=== PATIENT | male | born 1980 ===

== ENCOUNTER 2017-04-05 12:39 | Inpatient (IN) ==
[2017-04-05] MEDS ORDERED: ONDANSETRON 4 MG/2 ML VIAL IV STA (13:06)
[2017-04-05] MEDS ORDERED: METOCLOPRAMIDE 10 MG/2 ML VIAL IV STA (13:07)
--- NOTE | 2017-04-05 13:09 | Emergency Department Note ---
Arrival - Arrival Chief Complaint: Abdominal / Flank Pain Stated Complaint: abdominal pain ED Nursing Triage Note: Transfer from [facility] ER for further evaluation of pancreatitis. +mid-abdominal pain onset last pm. +nausea/ vomiting. +chills. +subjective fever. Lipase 980, H & H 8.9/31. Mode of Arrival: Stretcher Limitations: No Limitations Source: Patient Time Seen by Provider: 04/05/17 13:04 - History of Present Illness HPI Narrative: This 36-year-old white male presents on transfer from [facility] for acute pancreatitis. The patient states he has had onset of midepigastric burning pain as a 48 hours ago accompanied by repetitive vomiting with low- grade nausea. The patient states he is a drinker with his last alcohol consumption at the time of onset of symptoms. He denies any prior history of pancreatitis nor of known alcoholic liver disease although he appears slightly jaundiced. Other than being uncomfortable he is in no acute distress at this moment. Onset (ago): hour(s) (Patient presents 48 hours post onset of symptom) Allergies/Adverse Reactions: Allergies Allergy/AdvReac Type Severity Reaction Status Date / Time Amoxicillin Allergy Unknown Unknown/Unable Verified 04/05/17 12:58 to obtain Home Medications: Home Medications Medication Instructions Recorded Confirmed Type Ferrous Sulfate [Ferrous Sulfate 325 mg PO DAILY 04/06/15 04/30/16 History Cap] Pantoprazole Tab [Protonix Tab] 40 mg PO DAILY 04/30/16 04/30/16 History Polyethylene Glycol Powder 17 gm PO DAILY 04/30/16 04/30/16 History [Miralax] Thiamine HCl 400 mg PO DAILY 04/30/16 04/30/16 History levETIRAcetam TAB [Keppra Tab] 2 tablet PO TID 04/30/16 04/30/16 History Review of System - Review of System 12 point system: reviewed and no additional remarkable complaints except as stated - Review of System Constitutional: Present: as per HPI Gastrointestinal: Present: as per HPI Medical,Surgical,& Family Hx - Medical History Cardio: History of: Hypertension Neurology: History of: Seizures Gastrointestinal: History of: GI Problems Musculoskeletal: History of: Back/Neck Problems (bulging disc) Hematology: History of: Anemia (iron def) No history of: Blood Transfusion Reaction Other: No history of: Anesthesia Reactions - Surgical History Thoracic Surgeries: Patient denies;: Organ Transplant, Lobectomy Neurologic Surgeries: Patient denies: Neurologic Surgery HEENT Surgeries: Patient denies: Tonsilectomy & Adenoidectomy Abdominal Surgeries: Surgical HX of: Abdominal Surgery (colostomy when he was a baby, closed back up), Appendectomy, Colonoscopy, EGD Orthopedic Surgeries: Surgical HX of;: Orthopedic Surgery (x 4 surg, torn ligament, removed cartliage) - Family History Family History: Reports;: Family Diabetes, Family Heart Disease, Family Hypertension - Social History Smoking Status: Never smoker Frequency of Alcohol Use: Frequently Type of Drug Use: None Exam Physical Examination: GENERAL: Well developed, well nourished [place] male in no acute distress. HEENT: Normocephalic. No trauma. Moist mucous membranes. EOMI. PERRLA. ENT NML NECK: Supple. No adenopathy. CARDIAC: Regular. No murmurs. Heart rate 80 CHEST: Clear to auscultation. No respiratory distress. O2 sat 99% ABDOMEN: Soft. Very tender mid epigastrium with hypoactive bowel sounds. EXTREMITIES: No trauma. Normal ROM. No pedal edema. SKIN: No diaphoresis. No rash. Slight jaundice NEURO: Alert. Neuro intact no focal deficits. Vital Signs: Vital Signs Temperature 100.7 F H 04/05/17 12:39 Pulse Rate 80 04/05/17 12:39 Respiratory Rate 20 04/05/17 12:39 Blood Pressure 137/95 04/05/17 12:39 O2 Sat by Pulse Oximetry 99 04/05/17 12:39 Course - Reevaluation(s) Reevaluation #1: Patient presents for admission for pancreatitis and possible pancreatic abscess - Consultations Consultation #1: Discussed with hospitalist service who will admit for further evaluation treatment. Results - Labs Labs: Labs per [place] white blood cell count 4300, hematocrit 31, glucose 91, BUN 6, creatinine 0.7, bilirubin 2.5, lipase 935, ammonia 36 - Diagnostic Findings Procedure: CT Abdomen and Pelvis: image reviewed by me, report reviewed by me ( Benjie Kulkarni reveals 4 x 2 cm early pseudocyst versus pancreatic abscess between the pancreatic head and second portion of duodenum and which appears to invade the wall of the duodenum) Disposition Clinical Impression: Pancreatitis, Pancreatic abscess, Alcohol habituation Case discussed with: patient, patient's family Disposition: Still a Patient Condition: Guarded Time of Disposition: 13:51
[2017-04-05] MEDS ORDERED: ONDANSETRON 4 MG/2 ML VIAL ONE (13:23)
[2017-04-05] MEDS ORDERED: METOCLOPRAMIDE 10 MG/2 ML VIAL ONE (13:23)
[2017-04-05 14:11] LABS: Basophils # 0.1 10*3/uL (0.0-0.2); Basophils % 2.4 % (0.0-0.8); Eosinophils % 0.2 % (0.00-10.9); Hematocrit 27.7 VOL% (42.0-52.0); Hemoglobin 8.4 GM/DL (14.0-18.0); Immature Granulocytes % 0.9 %; Immature Granulocytes Absolute 0.05 #; Lymphocytes # 0.9 10*3/uL (1.4-4.0); Lymphocytes % 15.3 % (21.2-54.2); Mean Corpuscular HGB Conc 30.3 GM/DL (32-36); Mean Corpuscular Hemoglobin 25 PG (27-34); Mean Corpuscular Volume 81.7 FL (87-102); Mean Platelet Volume 10.3 FL (9.6-12.0); Monocytes # 0.7 10*3/uL (0.11-0.8); NRBC # 0.08 10*3/uL; Neutrophils % 69.2 % (38.7-73.9); Red Blood Count 3.39 MC/CUMM (3.8-5.5); Red Cell Distribution Width 18.9 % (9.3-17.3); White Blood Count 5.8 T/CUMM (4-12)
[2017-04-05 14:15] LABS: Platelet Count 82 T/CUMM (130-400)
[2017-04-05 14:29] LABS: Calcium 7.9 MG/DL (8.5-10.1); Osmolality,Calculated 271.7 MOS/KG (273-304); Potassium 3.5 MMOL/L (3.5-5.1)
--- NOTE | 2017-04-05 15:41 | Hospitalist History & Physical ---
Assessment and Plan (1) Pancreatitis Status: Acute Assessment and plan: Admit as inpatient. Treat with IV fluids and IV pain meds prn. IV antibiotics. Consult GI. Current Visit: Yes (2) Anemia Status: Acute Assessment and plan: Pt's h&h 8.4/27.7. We will continue to monitor. Anemia possibly secondary to chronic alcohol use. Current Visit: No (3) Generalized seizure Status: Chronic Assessment and plan: History of seizures. Ativan prn for seizures. Seizure precautions. Current Visit: No (4) Alcohol abuse Status: Acute Assessment and plan: Place pt in unit for possible alcohol withdrawal. Prn ativan. Order thiamine and folate. Monitor patient. Neuro checks. Current Visit: Yes History of Present Illness Chief complaint: abdominal pain History of present illness: Mr. Lin is a 36 year old male with a history of hypertension, pancreatitis, and seizures that presents as a transfer from [facility] for acute pancreatitis. Patient states that the pain had an onset of 2 days ago. Pt. reports that the pain started in the midepigastric area as a burning pain. Pt. reports nausea, vomiting, and a subjective fever. Pt denies any chest pain, shortness of breath at this time. Pt. states that he drinks at least 3 beers a day but denies any hard liquor intake. Pt. states that he has not ever had pancreatitis before but his is present and states he has had it at least once. Labs at the outside facility revealed elevated lipase and pt was transported here for higher level of care. Labs from our ED show a lipase of 1144, h&h of 8.4/27.7, and plt count of 82. Pt's case has been discussed with Dr. Angelo and pt will be admitted to the hospitalist service for further evaluation and treatment. Due to the patient's alcohol use and jittery state on exam in ED room 12; pt. will be placed in the ICU for close monitoring. Home meds have been reviewed and reconciled. Home Medications Medication Instructions Recorded Confirmed Type levETIRAcetam TAB [Keppra Tab] 750 tablet PO BID 04/30/16 04/05/17 History Propylene Glycol/Peg 400 [Systane 1 drop BOTH EYES QID PRN 04/05/17 04/05/17 History Gel Drops] Topiramate 50 mg PO DAILY 04/05/17 04/05/17 History Allergies Allergy/AdvReac Type Severity Reaction Status Date / Time Amoxicillin Allergy Unknown Unknown/Unable Verified 04/05/17 12:58 to obtain Medical,Surgical,& Family Hx - Medical History Cardio: History of: Hypertension Neurology: History of: Seizures Gastrointestinal: History of: GI Problems Musculoskeletal: History of: Back/Neck Problems (bulging disc) Hematology: History of: Anemia (iron def) No history of: Blood Transfusion Reaction Other: No history of: Anesthesia Reactions - Surgical History Thoracic Surgeries: Patient denies;: Organ Transplant, Lobectomy Neurologic Surgeries: Patient denies: Neurologic Surgery HEENT Surgeries: Patient denies: Tonsilectomy & Adenoidectomy Abdominal Surgeries: Surgical HX of: Abdominal Surgery (colostomy when he was a baby, closed back up), Appendectomy, Colonoscopy, EGD Orthopedic Surgeries: Surgical HX of;: Orthopedic Surgery (x 4 surg, torn ligament, removed cartliage) - Family History Family History: Reports;: Family Diabetes, Family Heart Disease, Family Hypertension - Social History Smoking Status: Never smoker Frequency of Alcohol Use: Frequently Type of Drug Use: None Marital Status: Lives With:: Spouse Functional capacity: independent ambulation - Constitutional Constitutional: Present: chills, fever(s), weakness. Absent: night sweats - EENT Eyes: Present: requires corrective lense. Absent: blurry vision Ears: Absent: decreased hearing Nose, mouth and throat: Absent: headache(s) - Cardiovascular Cardiovascular: Absent: chest pain at rest, edema - Respiratory Respiratory: Absent: cough - Gastrointestinal Gastrointestinal: Present: abdominal pain, nausea, vomiting - Genitourinary Genitourinary: Absent: difficulty urinating - Musculoskeletal Musculoskeletal: Absent: back pain - Neurological Neurological: Absent: confusion - Psychiatric Psychiatric: Absent: anxiety - Endocrine Endocrine: Absent: fatigue - Hematologic/Lymphatic Hematologic/Lymphatic: Absent: easy bleeding Exam - Constitutional Vitals: Period Temp Pulse Resp BP Sys/Long Pulse Ox Last 24 Hr 100.7 F 80 20 137/95 99 General appearance: normal weight, no acute distress - Head Head exam: Present: normal inspection, normocephalic - Eye Eye exam: Present: EOMI. Absent: scleral icterus Pupils: Present: MACK. Absent: fixed - Neck Neck exam: Present: normal inspection - Respiratory Respiratory exam: Present: clear to auscultation bilaterally. Absent: wheezes - Cardiovascular Cardiovascular exam: Present: regular rate and rhythm - GI/Abdominal GI/Abdominal exam: Present: normal bowel sounds, tenderness, soft - Extremities Exam Extremities exam: Present: normal inspection, normal capillary refill, full ROM. Absent: edema - Neurological Exam Neurological exam: Present: alert, oriented X3 - Psychiatric Psychiatric exam: Present: normal affect, normal mood - Skin Skin exam: Present: normal color, warm, dry Results - Labs CBC & BMP: 04/05/17 13:59 04/05/17 13:59 Lab Results: I have reviewed the past 24 hour labs
[2017-04-05 15:42] LABS: Hypochromasia 1+; Platelet Estimate Decreased
[2017-04-05 15:43] LABS: Giant Platelets Few
[2017-04-05] MEDS ORDERED: ALBUTEROL 2.5 MG/3 ML NEB RESP TX PRN (16:16)
[2017-04-05] MEDS ORDERED: ONDANSETRON 4 MG/2 ML VIAL IV PRN (16:16)
[2017-04-05] MEDS ORDERED: ACETAMINOPHEN 325 MG TABLET PO PRN (16:16)
[2017-04-05] MEDS ORDERED: Propylene Glycol/Peg 400 [Systane Gel Drops] 1 DROP BOTH EYES PRN (16:16)
[2017-04-05 16:32] LABS: Magnesium 1.5 MG/DL (1.8-2.4)
[2017-04-05] MEDS: SODIUM CHLORIDE 0.9% 1,000 ML IV SCH (17:03)
[2017-04-05] MEDS: HYDROmorphone 2 MG/1 ML VIAL IV PRN ×2 (17:08→22:06)
[2017-04-05] MEDS: LEVOFLOXACIN INJ 500 MG in PREMIX 1 EACH IV SCH (17:08)
[2017-04-05] MEDS: ENOXAPARIN 40 MG/0.4 ML SYRINGE SUBCUT SCH (17:08)
[2017-04-05] MEDS: chlordiazePOXIDE 25 MG CAPSULE PO PRN (17:09)
[2017-04-05 17:10] LABS: Apearance,Urine CLEAR (Clear); Bilirubin,Urine Negative (Negative); Blood, Urine Negative (Negative); Glucose,Urine (UA) Negative (Negative); Ketones,Urine 20 mg/dL (Negative); Mucus,Urine Occasional /LPF (Occasional); Nitrite,Urine Negative (Negative); Protein,Urine >=500 MG/DL; RBC,Urine <1 /HPF (0-4); Urine Color Amber (Yellow); Urine Specific Gravity 1.038 (1.001-1.035); Urine Urobilinogen < 2.0 EU/DL (0.2-1.0); WBC,Urine 1 /HPF (0-6)
[2017-04-05] MEDS: levETIRAcetam 250 MG TABLET PO SCH (20:21)
[2017-04-05] MEDS: THIAMINE 100 MG TABLET PO SCH (20:21)
[2017-04-05] MEDS ORDERED: POTASSIUM CHLORIDE 20 MEQ TABLET PO ONE (22:07)
[2017-04-05] MEDS ORDERED: MAGNESIUM SULF RIDER 2 GM in PREMIX 1 EACH IV ONE (22:24)
--- NOTE | 2017-04-05 22:59 | Gastrointestinal Consult Note ---
Assessment and Plan - Time spent with patient Time spent with patient: Greater than 30 minutes (1) Anemia Status: Acute Current Visit: No (2) Pancreatitis Status: Acute Current Visit: Yes (3) Alcohol abuse Status: Acute Assessment and plan: PLEASE NOTE -- automatic citation of patient information is unavoidable in this electronic note. I have made a reasonable effort to review the information cited , but it is not a part of my evaluation, impression, or recommendation unless specifically discussed in the dictated text that follows. As well, voice recognition software was used in the creation of this clinical note. Reasonable effort was made to identify and correct gross errors. Despite proofreading, errors in childcare worker may be present, including nonsense verbiage at times. If you encounter such an error, please contact me at for discussion and correction. -- Dr. Doyle Chief complaint/Consult Question: Acute pancreatitis Consult requested by: Petey History of present illness: This is a new patient, a 36-year-old , with possible history of prior pancreatitis, regular beer drinking, presenting to outside hospital with acute pancreatitis. States that starting 3- 4 days ago was having decrease in appetite, vague discomfort in the midepigastrium, starting 2 days ago had severe midepigastric pain, sharp, associated with nonbloody nausea and vomiting, with extension to more diffuse abdominal pain today. Denies prior symptoms greater than a week ago of early satiety, weight loss, melena, hematochezia. Currently denying diarrhea, constipation, hematochezia, melena. States that food does actually sound good to him this evening. Outside records from [facility] reviewed, patient admitted initially with vomiting which subsided after 8 mg of Zofran IV Has history of prior seizure, reporting they do not know the cause. States he had not been drinking beer for 2 weeks prior to seizure onset. Normally drinking approximately 3 beers per day, but states weeks to months ago he was drinking closer to 6-12 beers at a time, and "sharing a case with my friends on a daily basis." States he was drinking more heavily for about a year or 2, and was not drinking heavily prior to that. No hard liquor. No tobacco. No postprandial pain leading up to symptoms a few days ago. No history of gallstones. Does not know of any family members who have had pancreatitis, but states that some of his family is spread across the country. GI review of systems included: heartburn, regurgitation, early satiety, dysphagia, odynophagia, abdominal pain, nausea, vomiting, hematemesis, weight loss, weight gain, fever, chills, fatigue, decreased appetite, diarrhea, constipation, hematochezia, melena, bloating, malodorous flatus, anal pain, or NSAID use, and was negative except as noted above. REVIEW OF SYSTEMS: Complete other review of systems negative except as noted in the HPI. Outpatient medications: Personally reviewed Keppra 750 mg twice daily Topiramate 50 mg daily Propylene glycol gel drops to both eyes 4 times daily Inpatient medications: Personally reviewed Keppra 750 mg p.o. twice daily Levofloxacin 500 mg every 24 Ativan as needed Zofran as needed Protonix 40 mg p.o. daily NS 125 mils per hour IV every 8 hours scheduled Thiamine 400 mg p.o. twice daily Topamax 50 mg daily Multivitamin with folic acid daily Folic acid 1 mg daily Lovenox 40 mg subcu every 24 Librium 50 mg p.o. every 4 hours as needed Albuterol as needed Tylenol as needed Past Medical History: Reviewed Social history: Negative tobacco. Beer drinking as noted above Family history: No known pancreatitis or pancreatic cancer PHYSICAL EXAMINATION: CONSTITUTIONAL: Vital signs reviewed as documented above. In no acute distress. Nontoxic-appearing. EYES: Anicteric conjunctiva. Extra-ocular movements are intact and symmetric. EARS: Able to hear speech at conversational volume level, no external trauma/ masses. MOUTH: No oral/mouth lesions or ulcers. NECK: No masses or crepitus. Thyroid is of normal size and symmetric. HEART: Regular rate, regular rhythm LUNGS: Clear to auscultation bilaterally. No increased work of breathing or accessory muscle use. GI/ABDOMEN: Nonobese abdomen, soft, diffusely tender to palpation, with worse pain in the midepigastrium, voluntary guarding, no rebound tenderness, nondistended, no rigidity. No palpable mass. No appreciable hepatosplenomegaly. SKIN: No rash on face, arms, or hands. No palpable lesions MUSCULOSKELETAL: Normal gait. Muscle tone appears normal without any abnormal movements. PSYCH: Unusual affect. Somewhat jittery, appears slightly anxious, history questions are easily influenced by my input,. Alert and oriented to person, place, and time. Laboratory: Personally reviewed WBC 5.8, hemoglobin 8.4, platelets 82 Chemistrysodium 138, potassium 3.5, chloride 104, bicarb 26, anion gap 11.5, creatinine 0.5, glucose 89, calcium 7.9, magnesium 1.5 Lipase 1144, amylase 127 Liver associated enzymesnone drawn Serum alcohol less than 15 UA negative urobilinogen, and otherwise within normal limits Outside labs from 04/05/2017 also reviewed. Creatinine 0.7, hemoglobin 8.2, platelets 80s Total bilirubin 2.5, AST 97, ALT 27, alk phos 161 Lipase 930 Ammonia 36 Urine with bilirubin 2+, ketones 2+, protein 3+, blood 1+, positive nitrates, negative leukoesterase, 3-5 RBCs U tox negative for amphetamines, barbiturates, benzodiazepines, cocaine, opioids , PCP, THC, methamphetamine Radiology: Personally reviewed reports from outside records: Outside hospital CT abdomen pelvis with IV contrast from 04/05/2017. Thickening of the wall of the second and third portions of the duodenum with adjacent inflammatory stranding and a 3.6 x 2 cm probable fluid collection (hypodense) between the pancreatic head and second duodenum which appears to invade the wall of the duodenum. Differential diagnosis includes duodenitis/peptic ulcer disease, less likely acute pancreatitis localized to the head. Also noted as possible abscess or developing pseudocyst. Fatty liver. Stable perirectal lipomatosis or lipoma. Assessments: #Acute pancreatitis: recurrent per report of patient via memory of his . She is not at bedside this evening, so timeframe cannot be established. Potential etiologies include alcohol, biliary disease with current mass present , versus recurrent from pseudocyst with possible duct obstruction. No lipid panel. No clear family history, although limited by patients [id number]. No current use of pancreatitis inducing medications identified. #3.6x2 cm hypodense mass with adjacent inflammatory stranding between the pancreatic head and second portion of the duodenum #Anemia: MCV 81, possible iron deficiency. No current report of blood loss per patients clinical review, limited by history. Did have significant RBCs on outside urinalysis, but not seen here. #Other specified counseling -- The patient was seen for greater than 30 minutes. The patient was counseled for greater than 50% of this time regarding differential diagnosis, likely diagnosis, diagnostic and therapeutic alternatives, risks/benefits/alternatives of medications and procedures, and plan of care generally. The patient expressed understanding and wishes to proceed. Recommendations: -increase fluids to 250cc/hour, goal urine output 200-300 cc per hour -Replace potassium, magnesium, possible calcium pending albumin correction -Order CMP now for liver assessment -Lipid panel with triglyceride assessment -iron studies, celiac panel, b12, folate, retic count -MRCP pancreas and liver to better assess fluid collection noted on outside imaging, potential communication with pancreatic or biliary ducts, and source of lesion -recommend getting outside images for more direct review by our radiologists -alcohol withdrawal mgt per primary team, no current tachycardia Myesha Doyle MD, [facility] STAFF VOICE STUDIES DIRECTOR Current Visit: Yes History of Present Illness History of present illness: Mr. Lin is a 36 year old male Home Medications Medication Instructions Recorded Confirmed Type levETIRAcetam TAB [Keppra Tab] 750 tablet PO BID 04/30/16 04/05/17 History Propylene Glycol/Peg 400 [Systane 1 drop BOTH EYES QID PRN 04/05/17 04/05/17 History Gel Drops] Topiramate 50 mg PO DAILY 04/05/17 04/05/17 History Allergies Allergy/AdvReac Type Severity Reaction Status Date / Time Amoxicillin Allergy Unknown Unknown/Unable Verified 04/05/17 12:58 to obtain Medical,Surgical,& Family Hx - Medical History Cardio: History of: Hypertension Neurology: History of: Seizures Gastrointestinal: History of: GI Problems Musculoskeletal: History of: Back/Neck Problems (bulging disc) Hematology: History of: Anemia (iron def) No history of: Blood Transfusion Reaction Other: No history of: Anesthesia Reactions - Surgical History Thoracic Surgeries: Patient denies;: Organ Transplant, Lobectomy Neurologic Surgeries: Patient denies: Neurologic Surgery HEENT Surgeries: Patient denies: Tonsilectomy & Adenoidectomy Abdominal Surgeries: Surgical HX of: Abdominal Surgery (colostomy when he was a baby, closed back up), Appendectomy, Colonoscopy, EGD Orthopedic Surgeries: Surgical HX of;: Orthopedic Surgery (x 4 surg, torn ligament, removed cartliage) - Family History Family History: Reports;: Family Diabetes, Family Heart Disease, Family Hypertension - Social History Smoking Status: Never smoker Frequency of Alcohol Use: Frequently Type of Drug Use: None Exam - Constitutional Vitals: Period Temp Pulse Resp BP Sys/Long Pulse Ox Last 24 Hr 97.9 F-100.7 F 68-83 13-21 117-142/76-100 97-100 Results - Labs CBC & BMP: 04/05/17 13:59 04/05/17 13:59
[2017-04-05 23:47] LABS: Albumin 2.4 G/DL (3.4-5.0); Bilirubin,Total 2.1 MG/DL (0.2-1.0); Osmolality,Calculated 264.2 MOS/KG (273-304); Potassium 3.5 MMOL/L (3.5-5.1); Total Protein 7.7 G/DL (6.4-8.3)
[2017-04-06] MEDS: SODIUM CHLORIDE 0.9% 1,000 ML IV SCH ×6 (00:31→19:19)
[2017-04-06] MEDS ORDERED: MAGNESIUM SULF RIDER 2 GM in PREMIX 1 EACH IV ONE (01:02)
[2017-04-06] MEDS: LORazepam 2 MG/1 ML VIAL IV PRN ×4 (01:18→16:24)
[2017-04-06] MEDS: chlordiazePOXIDE 25 MG CAPSULE PO PRN ×3 (05:30→13:35)
[2017-04-06 05:36] LABS: Basophils # 0.2 10*3/uL (0.0-0.2); Basophils % 2.9 % (0.0-0.8); Eosinophils # 0.1 10*3/uL (0.0-0.87); Eosinophils % 2.1 % (0.00-10.9); Hematocrit 26.3 VOL% (42.0-52.0); Hemoglobin 7.8 GM/DL (14.0-18.0); Immature Granulocytes % 1.5 %; Immature Granulocytes Absolute 0.08 #; Lymphocytes # 0.9 10*3/uL (1.4-4.0); Lymphocytes % 17.4 % (21.2-54.2); Mean Corpuscular HGB Conc 29.7 GM/DL (32-36); Mean Corpuscular Hemoglobin 25 PG (27-34); Mean Corpuscular Volume 82.7 FL (87-102); Monocytes # 0.6 10*3/uL (0.11-0.8); Monocytes % 12.1 % (1.7-12.7); NRBC # 0.06 10*3/uL; Neutrophils # 3.3 10*3/uL (1.4-7.4); Platelet Count 87 T/CUMM (130-400); Red Blood Count 3.18 MC/CUMM (3.8-5.5); Red Cell Distribution Width 18.5 % (9.3-17.3); White Blood Count 5.2 T/CUMM (4-12)
[2017-04-06 06:09] LABS: Albumin 2.2 G/DL (3.4-5.0); Bilirubin,Direct 1.31 MG/DL (0.0-0.20); Bilirubin,Indirect 1.3 MG/DL (0.0-1.0); Bilirubin,Total 2.6 MG/DL (0.2-1.0); Magnesium 2.1 MG/DL (1.8-2.4)
[2017-04-06 06:10] LABS: Albumin 2.3 G/DL (3.4-5.0); Bilirubin,Total 2.6 MG/DL (0.2-1.0); Calcium 7.8 MG/DL (8.5-10.1); Osmolality,Calculated 262.4 MOS/KG (273-304); Potassium 3.5 MMOL/L (3.5-5.1); Total Protein 7.1 G/DL (6.4-8.3)
[2017-04-06 06:11] LABS: Risk Ratio 3.05; VLDL CHOLESTEROL 25.6 MG/DL
[2017-04-06 06:13] LABS: % Iron Saturation 9.2 % (18-50); Ferritin 24.9 ng/ml (26-388)
[2017-04-06 06:42] LABS: Folate 4.7 NG/ML (5.4-24.0)
[2017-04-06] MEDS ORDERED: MINERAL OIL/PETROLATUM OPH OINT 3.5 GM TUBE BOTH EYES PRN (07:00)
[2017-04-06 07:27] LABS: Band Neutrophils 1 % (0-10); Hypochromasia 2+; Lymphocytes 6 % (20-55); Nucleated Red Blood Cells 2 (0-5); Platelet Estimate Decreased; Polychromasia Slight; Segmented Neutrophils 83 % (50-85); Target Cells Slight; Total Cells Counted 100
[2017-04-06] MEDS: HYDROmorphone 2 MG/1 ML VIAL IV PRN ×2 (07:45→11:21)
[2017-04-06] MEDS ORDERED: MULTIVITAMIN (CENTRUM) TABLET PO SCH (09:00)
[2017-04-06] MEDS ORDERED: TOPIRAMATE 25 MG TABLET PO SCH (09:00)
[2017-04-06] MEDS ORDERED: FOLIC ACID 1 MG TABLET PO SCH (09:00)
[2017-04-06] MEDS ORDERED: THIAMINE 100 MG TABLET PO SCH (09:00)
[2017-04-06] MEDS ORDERED: PANTOPRAZOLE 40 MG TABLET PO SCH (09:00)
[2017-04-06] MEDS: levETIRAcetam 250 MG TABLET PO SCH (09:25)
[2017-04-06] MEDS: THIAMINE 100 MG TABLET PO SCH (09:26)
[2017-04-06] MEDS ORDERED: chlordiazePOXIDE 25 MG CAPSULE PO PRN (14:47)
--- NOTE | 2017-04-06 15:29 | CT Report ---
Exam: CT abdomen and pelvis with intravenous contrast Exam date: April 06, 2017 Clinical History: 36-year-old male with epigastric pain Technique: Axial computed tomography images of the abdomen and pelvis with intravenous contrast. All CT scans at this facility use one or more dose reduction techniques. Automated exposure control, MA/KV adjustment per patient size (including targeted exam Square dose is matched to indication) or iterative reconstruction technique Contrast: 100 mL of Omnipaque 350 administered intravenously Comparison: Previous day at 1900 hours Findings: Lower thorax: No acute pathologic findings at the lung bases Abdomen: Liver: Normal Gallbladder and bile ducts: Gallbladder is normal. No calcified stones. No ductal dilatation. Pancreas: There is an ill-defined heterogeneously hypoechoic enhancing mass involving the head and uncinate process of pancreas measuring up to 4.2 cm that extends into the medial wall of the second portion of the duodenum. Associated peripancreatic and periduodenal stranding within the adjacent mesentery. Spleen: Spleen is normal. Adrenals: No adrenal mass. Kidneys and ureters: Kidneys are normal in size, morphology and enhancement. No hydronephrosis. No ureteral calculus. Stomach and bowel: No evidence of acute gastritis, colitis or enteritis. No bowel obstruction. Appendix: Unremarkable. No primary or secondary signs to suggest appendicitis. Pelvis: Bladder: Unremarkable Reproductive: Unremarkable as visualized. Abdomen and pelvis: Intraperitoneal space: No pneumoperitoneum. No significant intraperitoneal fluid Bones/joints: No acute osseous abnormality Soft tissues: No mass Vasculature: No aortic aneurysm Lymph nodes: No adenopathy Impression: 1. Ill-defined heterogeneously hypoenhancing mass involving the pancreatic head and second portion of the duodenum. Differential considerations would include focal pancreatitis, pancreatic and/or ampullary mass, duodenitis versus contained perforated duodenal ulcer. ERCP is suggested. PROCEDURE INTERPRETED AT [facility] DEPARTMENT OF RADIOLOGY Final Report Signed by: Himanshu Simmons
[2017-04-06] MEDS ORDERED: POTASSIUM CHLORIDE 20 MEQ TABLET PO SCH (15:30)
--- NOTE | 2017-04-06 15:48 | Hospitalist Progress Note ---
Hospitalist: Subjective Interval history: 36-year-old [place] who was transferred from from an outside facility for evaluation of acute pancreatitis with possible pseudocyst. Patient is awake and alert and mildly jittery. Pt is getting regular Librium and Ativan Exam - Constitutional Vitals: Period Temp Pulse Resp BP Sys/Long Pulse Ox Last 24 Hr 97.9 F-100.0 F 64-93 13-21 107-142/74-100 95-100 Exam: General: No Acute Distress HEENT: Normocephalic, atraumatic, Extra ocular movements intact Neck: Supple, No JVD Chest: Clear to auscultation B/L CV: S1 + S2 audible without murmur, gallop or rub Abd: soft, mild epigastric tenderness, BS + Ext: No edema Skin: No purpura, bruising or rash Rheumatologic: No Joint deformities Neurologic: Awake and alert Results - Labs CBC & BMP: 04/06/17 05:06 04/06/17 05:06 - Impressions Assessment and Plan: Acute alcoholic pancreatitis Status: Acute Assessment and plan: Continue IV fluid and supportive treatment. Follow-up CT scan of the abdomen Current Visit: Yes Anemia of chronic disease Status: Acute Assessment and plan: Monitor hemoglobin and hematocrit Current Visit: No Chronic seizure disorder Status: Chronic Assessment and plan: Stable on Keppra continue Current Visit: No Alcohol abuse Status: Acute Assessment and plan: Remains at risk for DTs. He is on Librium and Ativan Current Visit: Yes DVT prophylaxis with Lovenox
[2017-04-06] MEDS: ENOXAPARIN 40 MG/0.4 ML SYRINGE SUBCUT SCH (16:23)
[2017-04-06] MEDS: LEVOFLOXACIN INJ 500 MG in PREMIX 1 EACH IV SCH (16:23)
--- NOTE | 2017-04-06 16:48 | Gastrointestinal Progress Note ---
Assessment and Plan (1) Anemia Status: Acute Current Visit: No (2) Pancreatitis Status: Acute Current Visit: Yes (3) Alcohol abuse Status: Acute Assessment and plan: PLEASE NOTE -- automatic citation of patient information is unavoidable in this electronic note. I have made a reasonable effort to review the information cited , but it is not a part of my evaluation, impression, or recommendation unless specifically discussed in the dictated text that follows. As well, voice recognition software was used in the creation of this clinical note. Reasonable effort was made to identify and correct gross errors. Despite proofreading, errors in well cleaner may be present, including nonsense verbiage at times. If you encounter such an error, please contact me at for discussion and correction. -- Vivek Chief complaint: Follow-up acute pancreatitis 24 hour events: No acute events overnight, patient unable to tolerate MRI machine this morning due to anxiety, CT pancreas done instead. Consult to Dr. De La Cruz this afternoon. Subjective: Mr. Mcfadden in [place] states that he is marginally better today, slightly improved abdominal pain, improved appetite. No new fevers or chills Medications: Reviewed with no gastrointestinal related changes noted REVIEW OF SYSTEMS: Complete other review of systems negative except as noted in the HPI PHYSICAL EXAMINATION: CONSTITUTIONAL: Vital signs reviewed as documented above. In no acute distress. Nontoxic-appearing. EYES: Anicteric conjunctiva. Extra-ocular movements are intact and symmetric. EARS: Able to hear speech at conversational volume level, no external trauma/ masses. No increased work of breathing or accessory muscle use. GI/ABDOMEN: Nonobese abdomen, soft, persistent tenderness in the midepigastrium to palpation, no rebound tenderness, nondistended, no rigidity. No palpable mass. No appreciable hepatosplenomegaly. SKIN: No rash on face, arms, or hands. No palpable lesions PSYCH: Normal affect. Alert and oriented to person, place, and time. Laboratory: Personally reviewed WBC still 5.2, hemoglobin 7.8, platelet count 87 Radiology: Personally reviewed reports and images with no pertinent changes unless noted here: CT pancreas of the abdomen, reviewed report by phone with radiologist, significant for approximately 3 cm heterogenous, fluid density mass abutting the pancreatic head and duodenal sweep. Unable to differentiate whether this is coming from the duodenum, such as duodenal diverticulum with phlegmon, contained perforation of ulcer, versus pancreatic head cancer, ampullary cancer , fluid related to severe pancreatitis Assessments: #Acute pancreatitisstable, currently responding well to current treatment #3 cm mass abutting the duodenum and pancreas. Differential diagnosis includes duodenal ulcer with contained perforation, duodenal diverticulum with phlegmon, pancreatic fluid collection related to severity of pancreatitis versus pancreatic head mass. Does not appear to be a pseudocyst or organized collection in the pancreas. No fevers or elevation in white blood cell count to suggest this is an abscess requiring drainage, or an open perforation. #Other specified counseling -- The patient was seen for greater than 30 minutes. The patient was counseled for greater than 50% of this time regarding differential diagnosis, likely diagnosis, diagnostic and therapeutic alternatives, risks/benefits/alternatives of medications and procedures, and plan of care generally. The patient expressed understanding and wishes to proceed. Recommendations: -Continue with current management of acute pancreatitis and monitor for clinical changes -I have consulted and spoken directly to Dr. Myrick regarding this case, in case surgical intervention is recommended or required, or to determine if sampling recommended or required -I am hesitant to perform an EGD at this time for assessment of the duodenum for possible ulceration, as this may be relatively contraindicated in a patient if this is a contained perforation. Patient with persistently worsening anemia , with iron deficiency, may be consistent with peptic ulcer disease but with overall improving clinical course will avoid EGD for now. If this is in fact a results of pancreatitis, may continue to organize for later drainage. Less likely possibility that this is the source of the patient's pancreatitis in this younger aged patient without prior tobacco use or known family history of pancreatic cancer. Currently not ordering a CA-19-9 as this can be falsely elevated in the setting of acute pancreatitis. This was discussed with Dr. Myrick who also did not see indication for acute change in management at this time. -still awaiting follow-up labs Myesha Doyle MD, MPH [employer] Current Visit: Yes Exam (Progress Note) - Constitutional Vitals: Period Temp Pulse Resp BP Sys/Long Pulse Ox Last 24 Hr 97.9 F-100.0 F 64-93 13-22 107-142/74-100 94-100 Results - Labs CBC & BMP: 04/06/17 05:06 04/06/17 05:06
[2017-04-06] MEDS ORDERED: LORazepam 2 MG/1 ML VIAL IV STA (17:53)
[2017-04-06] MEDS ORDERED: PHENobarbital 130 MG/1 ML VIAL IV ONE (17:55)
[2017-04-06] MEDS ORDERED: HALOPERIDOL 5 MG/ML AMP IV PRN (17:58)
[2017-04-06] MEDS ORDERED: SUCCINYLCHOLINE 200 MG/10 ML VIAL ONE ×2 (18:31→18:45)
[2017-04-06] MEDS ORDERED: ETOMIDATE 20 MG/10 ML VIAL IV ONE (18:31)
[2017-04-06] MEDS ORDERED: PROPOFOL 1,000 MG/100 ML BOTTLE IV ONE (18:31)
[2017-04-06] MEDS ORDERED: ESMOLOL 100 MG/10 ML VIAL IV ONE (18:45)
[2017-04-06] MEDS ORDERED: PROPOFOL 200 MG/20 ML VIAL IV ONE (18:45)
[2017-04-06] MEDS ORDERED: SUCCINYLCHOLINE 200 MG/10 ML VIAL IV ONE (18:56)
[2017-04-06] MEDS: PROPOFOL 1,000 MG/100 ML BOTTLE IV SCH ×3 (19:00→23:30)
--- NOTE | 2017-04-06 19:13 | Anesthesia Procedures ---
Anesthesia Procedures - Intubation Time out performed intubation: No (emergency) Sedative: other (propofol) Mg given sedative: 200 Paralytic: Succinylcholine Mg given paralytic: 120 Laryngoscope: Juwan (mac 4) ET Tube Size: 7.5 ET Tube Uncuffed: No (cuffed) Tube Secured Depth (cm): 22 Tube Secured Location: lips Tube Placement Confirmation: visualized tube passing through cords, equal breath sounds bilaterally, no breath sounds over epigastrium, confirmation detector color change Patient tolerated procedure intubation: well Intubation Complications: none (esmolol 100 mg given for HR of 176 prior to intubation, post intubation: bp 126/72, HR 108, 02 sat 100%, Dr. Bennett assisting)
[2017-04-06] MEDS: DIAZEPAM 10 MG/2 ML SYRINGE IV PRN (19:22)
--- NOTE | 2017-04-06 19:28 | XRay Report ---
Portable chest April 06, 2017 at 1857 hours Indication: ET tube placement Comparison: March 08, 2015 Findings: Cardiomediastinal contours are normal. Endotracheal tube in satisfactory position. Lungs are clear bilaterally. No acute osseous abnormalities. Visualized upper abdomen demonstrates no acute pathology. Impression: 1. Uncomplicated intubation 2. No acute cardiopulmonary findings PROCEDURE INTERPRETED AT [facility] Final Report Signed by: Himanshu Simmons
--- NOTE | 2017-04-06 19:37 | General Surgery Consult Note ---
Assessment and Plan (1) Pancreatitis Status: Acute Assessment and plan: Impression: Pancreatitis Plan: CT images and report reviewed. He is a complex cystic masses near the head of the pancreas. I suspect this is related to the pancreatitis and may be a pseudocyst or walling off of edema and peripancreatic fluid in the area. It is somewhat unusual in this location. I doubt malignancy. MRI was unable to be performed earlier because the patient could not stay still long enough to complete. He has gone into delirium tremens and is now intubated. Recommend continuing antibiotics and I will add Flagyl. I do not think this is a perforation of the duodenum. Generally has a significant amount of free air and free fluid. I recommend proceeding with MRI now that the patient is intubated when he is stable enough from his DTs to have that done. Current Visit: Yes History of Present Illness Chief complaint: Consult for loculated mass near the head of the pancreas History of present illness: Mr. Lin is a 36 year old male who was admitted with alcoholic pancreatitis. See his chart for details. He has been admitted to the ICU for monitoring his alcohol withdrawal. The patient is now gone into delirium tremens and was just intubated. Is a diagnosis of pancreatitis and a CT scan was performed showing a fluid collection near the head of the pancreas. Home Medications Medication Instructions Recorded Confirmed Type levETIRAcetam TAB [Keppra Tab] 750 tablet PO BID 04/30/16 04/05/17 History Propylene Glycol/Peg 400 [Systane 1 drop BOTH EYES QID PRN 04/05/17 04/05/17 History Gel Drops] Topiramate 50 mg PO DAILY 04/05/17 04/05/17 History Allergies Allergy/AdvReac Type Severity Reaction Status Date / Time Amoxicillin Allergy Unknown Unknown/Unable Verified 04/05/17 12:58 to obtain Medical,Surgical,& Family Hx - Medical History Cardio: History of: Hypertension Neurology: History of: Seizures Gastrointestinal: History of: GI Problems Musculoskeletal: History of: Back/Neck Problems (bulging disc) Hematology: History of: Anemia (iron def) No history of: Blood Transfusion Reaction Other: No history of: Anesthesia Reactions - Surgical History Thoracic Surgeries: Patient denies;: Organ Transplant, Lobectomy Neurologic Surgeries: Patient denies: Neurologic Surgery HEENT Surgeries: Patient denies: Tonsilectomy & Adenoidectomy Abdominal Surgeries: Surgical HX of: Abdominal Surgery (colostomy when he was a baby, closed back up), Appendectomy, Colonoscopy, EGD Orthopedic Surgeries: Surgical HX of;: Orthopedic Surgery (x 4 surg, torn ligament, removed cartliage) - Family History Family History: Reports;: Family Diabetes, Family Heart Disease, Family Hypertension - Social History Smoking Status: Never smoker Frequency of Alcohol Use: Frequently Type of Drug Use: None ROS unobtainable: due to endotracheal tube Exam - Constitutional Vitals: Period Temp Pulse Resp BP Sys/Long Pulse Ox Last 24 Hr 98.4 F-100.0 F 64-113 13-31 107-142/72-100 94-100 General appearance: no acute distress - Neck Neck exam: Present: normal inspection - Respiratory Respiratory exam: Present: clear to auscultation bilaterally (Intubated) - Cardiovascular Cardiovascular exam: Present: tachycardia (Sinus tach in the 110s) - GI/Abdominal GI/Abdominal exam: Present: soft (Nondistended, just intubated, exam limited) - Neurological Exam Neurological exam: Present: other (Reportedly he was agitated but was just intubated) Speech: Present: abnormal (None currently as he was just intubated) - Skin Skin exam: Present: normal color Results - Labs CBC & BMP: 04/06/17 05:06 04/06/17 05:06 Lab Results: I have reviewed the past 24 hour labs
[2017-04-06 19:52] LABS: ABG Base Excess -6.6 MMOL/L (-2.5-2.5); ABG HCO3 18.9 MMOL/L (20-26); ABG Oxygen Saturation 99.3 % (95-100); ABG PCO2 39.5 MM HG (35-48); ABG PH 7.297 (7.35-7.45); ABG TCO2 18.3 MMOL/L (23-27); Allen Test Positive; Pt O2 Delivery Device Ventilator
[2017-04-06] MEDS: metroNIDAZOLE INJ 500 MG in PREMIX 1 EACH IV SCH (19:53)
[2017-04-06 20:31] LABS: Barbiturates Screen,Urine Positive (Negative); Benzodiazepines Screen,Urine Positive (Negative); Cannabinoid Screen,Urine Negative (Negative); Opiate Screen,Urine Positive (Negative); Phencyclidine Screen,Urine Negative (Negative)
[2017-04-07] MEDS: SODIUM CHLORIDE 0.9% 1,000 ML IV SCH ×9 (00:45→22:46)
[2017-04-07] MEDS: metroNIDAZOLE INJ 500 MG in PREMIX 1 EACH IV SCH ×4 (01:12→21:51)
[2017-04-07] MEDS: LORazepam 2 MG/1 ML VIAL IV PRN ×2 (02:01→08:45)
[2017-04-07 03:13] LABS: ABG Base Excess -2.2 MMOL/L (-2.5-2.5); ABG HCO3 22.5 MMOL/L (20-26); ABG Oxygen Saturation 99.8 % (95-100); ABG PCO2 35.6 MM HG (35-48); ABG PH 7.401 (7.35-7.45); ABG TCO2 20.3 MMOL/L (23-27); Allen Test Positive; Pt O2 Delivery Device Ventilator
[2017-04-07] MEDS: PROPOFOL 1,000 MG/100 ML BOTTLE IV SCH ×6 (03:30→22:45)
[2017-04-07 06:04] LABS: Basophils # 0.1 10*3/uL (0.0-0.2); Basophils % 2.5 % (0.0-0.8); Eosinophils # 0.1 10*3/uL (0.0-0.87); Hematocrit 26.4 VOL% (42.0-52.0); Hemoglobin 7.7 GM/DL (14.0-18.0); Immature Granulocytes % 1.1 %; Immature Granulocytes Absolute 0.04 #; Lymphocytes # 0.6 10*3/uL (1.4-4.0); Mean Corpuscular HGB Conc 29.2 GM/DL (32-36); Mean Corpuscular Hemoglobin 25 PG (27-34); Mean Corpuscular Volume 84.6 FL (87-102); Mean Platelet Volume 10.2 FL (9.6-12.0); Monocytes # 0.5 10*3/uL (0.11-0.8); Monocytes % 13.8 % (1.7-12.7); Neutrophils # 2.3 10*3/uL (1.4-7.4); Neutrophils % 63.6 % (38.7-73.9); Platelet Count 89 T/CUMM (130-400); Red Blood Count 3.12 MC/CUMM (3.8-5.5); Red Cell Distribution Width 18.7 % (9.3-17.3); White Blood Count 3.6 T/CUMM (4-12)
[2017-04-07 06:37] LABS: Albumin 1.5 G/DL (3.4-5.0); Bilirubin,Total 1.5 MG/DL (0.2-1.0); Calcium 5.9 MG/DL (8.5-10.1); Osmolality,Calculated 277.1 MOS/KG (273-304); Potassium 3.1 MMOL/L (3.5-5.1)
[2017-04-07 06:43] LABS: Eosinophils 4 % (0-10); Hypochromasia 1+; Lymphocytes 14 % (20-55); Nucleated Red Blood Cells 1 (0-5); Segmented Neutrophils 75 % (50-85); Total Cells Counted 100
[2017-04-07 06:44] LABS: Microcytosis 1+; Polychromasia Slight
[2017-04-07 06:45] LABS: Anisocytosis 1+; Platelet Estimate Decreased
[2017-04-07] MEDS ORDERED: POTASSIUM CHLORIDE RIDER 20 MEQ in PREMIX 1 EACH IV PRN (08:34)
--- NOTE | 2017-04-07 08:48 | Pulmonology Consult Note ---
History of Present Illness Chief complaint: Ventilator. DT's. Pancreatitis. Alcoholic History of present illness: Mr. Lin is a 36 year old [place] male whom I been asked to see in pulmonary consultation. I been asked to treat his pulmonary problems and manage his mechanical ventilation. This patient was referred from [facility] with abdominal symptoms. He demonstrated evidence of delirium tremors. He did not be managed and required sedation intubation mechanical ventilation. The patient is an alcoholic. He has had a history of pancreatic problems. On x -rays he has a mass which is felt to be a pancreatic pseudocyst. The patient is sedated. He is unable to give me a review of systems. Presently his review of systems is therefore negative. Allergies. Amoxicillin Home medicines. Keppra. Topiramate. Systane gel drops. Past history. Seizures. High blood pressure. Pancreatitis. History of back and neck disc problems. Colostomy when he was a baby which was reanastomosed. Appendectomy. Social history. Reportedly never smoked. . Denies any drug use. Drinks of beer on a daily basis. Drug screen on arrival here. Serum alcohol less than 15. Positive for opiates , barbiturates and benzodiazepines. Note home medicines. Note patient was transferred from another institution so may have received some medicines along the way. Microbiology. No positive cultures. Lab. Creatinine is 3.1. Sodium 142. Total bilirubin was 2.6 at admission now 1.5. AST is elevated 94 ALT is normal at 24 alkaline Harley was initially 148 and is dropped to 101. Protein and albumin are low at 5.01.5 respectively. H& H is 7.7/26.4 with decreased indices and an elevated red blood cell distribution with. Platelets are 8 89,000 with a normal MPV white count is 3600 with 64 segs, 16 lymphs and 14 monocytes iron saturation is low at 9.2%. Total iron is low with a low normal total iron-binding capacity.Vitamin B12 level is normal. Folic acid level slightly low at 4.7. Amylase is dropped from 127-40 lipase is dropped from 1144 to 321. ABGs on mechanical ventilation FiO2 40% shows a pH of 7.40, PCO2 35.6, PO2 of 193 and a bicarb of 22.5. Chest x-ray. My interpretation. Heart size is normal. Pulmonary arteries are normal. No hilar adenopathy PD. Mediastinum is probably normal. Endotracheal tube is in good position. The left diaphragm is equal in height to the right which is a little unusual. There is scattered areas of increased markings which do not coalesce. I see no infiltrates or congestive heart, masses or pneumothorax Physical exam. Vital signs. Temp is presently 97.8 patient's had 3 temps in the 100 range. Neurological. Patient sedated. He has what looks like seizures and he appears to have asterixis. Face. Symmetrical. No edema of the lips or tongue Neck. Symmetrical. No masses. No meningismus. Lymphatics. No 7 mandibular cervical supraclavicular or epitrochlear adenopathy. Chest. Very mild loose large airway congestion. No wheezes no stridor. Cannot comment on chest wall tenderness since the patient is sedated Heart. Regular at 100 bpm I do not hear a murmur rub or gallop Abdomen. Slightly distended with scattered bowel sounds. and rectal deferred Extremities. No evidence of deep venous thrombophlebitis no clubbing. Musculoskeletal on a limited exam no gross abnormalities cervical thoracic and lumbar spine. The remainder the exam is negative. Impression. 1. Acute pancreatitis. 2. Possible pseudocyst of the pancreas 3. Alcoholism 4. Probable DTs 5. Intubation and mechanical ventilation in order to protect the patient's airways. 6. See past history 7. Hypokalemia 9. Iron deficiency anemia 8. Hypoproteinemia and hypoalbuminemia Plan. 1. Mechanical ventilation with weaning and physical therapy protocol 2. Ammonia level 3. Potassium replacement 4. See order Home Medications Medication Instructions Recorded Confirmed Type levETIRAcetam TAB [Keppra Tab] 750 tablet PO BID 04/30/16 04/05/17 History Propylene Glycol/Peg 400 [Systane 1 drop BOTH EYES QID PRN 04/05/17 04/05/17 History Gel Drops] Topiramate 50 mg PO DAILY 04/05/17 04/05/17 History Allergies Allergy/AdvReac Type Severity Reaction Status Date / Time Amoxicillin Allergy Unknown Unknown/Unable Verified 04/05/17 12:58 to obtain Exam (Pulmonay) H&P - Constitutional Vitals: Period Temp Pulse Resp BP Sys/Long Pulse Ox Last 24 Hr 97.6 F-99.1 F 59-115 12-31 89-142/47-98 94-100 Medical,Surgical,& Family Hx - Medical History Cardio: History of: Hypertension Neurology: History of: Seizures Gastrointestinal: History of: GI Problems Musculoskeletal: History of: Back/Neck Problems (bulging disc) Hematology: History of: Anemia (iron def) No history of: Blood Transfusion Reaction Other: No history of: Anesthesia Reactions - Surgical History Thoracic Surgeries: Patient denies;: Organ Transplant, Lobectomy Neurologic Surgeries: Patient denies: Neurologic Surgery HEENT Surgeries: Patient denies: Tonsilectomy & Adenoidectomy Abdominal Surgeries: Surgical HX of: Abdominal Surgery (colostomy when he was a baby, closed back up), Appendectomy, Colonoscopy, EGD Orthopedic Surgeries: Surgical HX of;: Orthopedic Surgery (x 4 surg, torn ligament, removed cartliage) - Family History Family History: Reports;: Family Diabetes, Family Heart Disease, Family Hypertension - Social History Smoking Status: Never smoker Frequency of Alcohol Use: Frequently Type of Drug Use: None Results - Labs CBC & BMP: 04/07/17 05:43 04/07/17 05:43
--- NOTE | 2017-04-07 08:58 | XRay Report ---
Portable chest April 07, 2017 at 0259 hours Indication: Respiratory failure Comparison images from previous day at 1857 hours Findings: Esophageal gastric tube has been placed in satisfactory position. Remaining tubes and lines are unchanged. Low lung volumes. No consolidative or congestive process. No acute osseous abnormalities. Impression: 1. Uncomplicated esophageal gastric tube placement. 2. Low lung volumes. No acute cardiopulmonary process PROCEDURE INTERPRETED AT [facility] [place] [facility]PARTMENT OF RADIOLOG[facility] Final Report Signed by: Himanshu Simmons
[2017-04-07] MEDS ORDERED: THIAMINE INJ 100 MG in SODIUM CHLORIDE 0.9% 100 ML IV SCH (09:00)
[2017-04-07] MEDS ORDERED: THIAMINE 200 MG/2 ML VIAL IV SCH (09:00)
[2017-04-07] MEDS ORDERED: FOLIC ACID 5 MG/1 ML VIAL IV SCH ×2 (09:00→10:00)
[2017-04-07] MEDS ORDERED: FOLIC ACID INJ 1 MG in SYRINGE 1 EACH IV ONE (09:30)
[2017-04-07] MEDS: DIAZEPAM 10 MG/2 ML SYRINGE IV PRN (09:35)
[2017-04-07] MEDS ORDERED: CALCIUM CHLORIDE 1,000 MG/10 ML SYRINGE IV ONE (09:37)
[2017-04-07] MEDS ORDERED: CALCIUM GLUCONATE 1,000 MG in SODIUM CHLORIDE 0.9% 100 ML IV ONE (10:00)
[2017-04-07] MEDS ORDERED: MIDAZOLAM 100 MG in SODIUM CHLORIDE 0.9% 80 ML IV SCH (10:00)
[2017-04-07] MEDS: PANTOPRAZOLE 40 MG VIAL IV SCH (10:24)
--- NOTE | 2017-04-07 10:30 | Gastrointestinal Progress Note ---
Assessment and Plan - Time spent with patient Time spent with patient: Greater than 30 minutes (1) Anemia Status: Acute Current Visit: No (2) Pancreatitis Status: Acute Current Visit: Yes (3) Alcohol abuse Status: Acute Assessment and plan: PLEASE NOTE -- automatic citation of patient information is unavoidable in this electronic note. I have made a reasonable effort to review the information cited , but it is not a part of my evaluation, impression, or recommendation unless specifically discussed in the dictated text that follows. As well, voice recognition software was used in the creation of this clinical note. Reasonable effort was made to identify and correct gross errors. Despite proofreading, errors in food service technician may be present, including nonsense verbiage at times. If you encounter such an error, please contact me at for discussion and correction. -- Vivek Chief complaint: Follow-up acute pancreatitis 24 hour events: No acute events overnight, patient unable to tolerate MRI machine this morning due to anxiety, CT pancreas done instead. Consult to Dr. De La Cruz this afternoon. Subjective: Mr. Mcfadden in [place] states that he is marginally better today, slightly improved abdominal pain, improved appetite. No new fevers or chills Medications: Reviewed with no gastrointestinal related changes noted REVIEW OF SYSTEMS: Complete other review of systems negative except as noted in the HPI PHYSICAL EXAMINATION: CONSTITUTIONAL: Vital signs reviewed as documented above. In no acute distress. Nontoxic-appearing. EYES: Anicteric conjunctiva. Extra-ocular movements are intact and symmetric. EARS: Able to hear speech at conversational volume level, no external trauma/ masses. No increased work of breathing or accessory muscle use. GI/ABDOMEN: Nonobese abdomen, soft, persistent tenderness in the midepigastrium to palpation, no rebound tenderness, nondistended, no rigidity. No palpable mass. No appreciable hepatosplenomegaly. SKIN: No rash on face, arms, or hands. No palpable lesions PSYCH: Normal affect. Alert and oriented to person, place, and time. Laboratory: Personally reviewed WBC still 5.2, hemoglobin 7.8, platelet count 87 Radiology: Personally reviewed reports and images with no pertinent changes unless noted here: CT pancreas of the abdomen, reviewed report by phone with radiologist, significant for approximately 3 cm heterogenous, fluid density mass abutting the pancreatic head and duodenal sweep. Unable to differentiate whether this is coming from the duodenum, such as duodenal diverticulum with phlegmon, contained perforation of ulcer, versus pancreatic head cancer, ampullary cancer , fluid related to severe pancreatitis Assessments: #Acute pancreatitisstable, currently responding well to current treatment #3 cm mass abutting the duodenum and pancreas. Differential diagnosis includes duodenal ulcer with contained perforation, duodenal diverticulum with phlegmon, pancreatic fluid collection related to severity of pancreatitis versus pancreatic head mass. Does not appear to be a pseudocyst or organized collection in the pancreas. No fevers or elevation in white blood cell count to suggest this is an abscess requiring drainage, or an open perforation. #Other specified counseling -- The patient was seen for greater than 30 minutes. The patient was counseled for greater than 50% of this time regarding differential diagnosis, likely diagnosis, diagnostic and therapeutic alternatives, risks/benefits/alternatives of medications and procedures, and plan of care generally. The patient expressed understanding and wishes to proceed. Recommendations: -Continue with current management of acute pancreatitis and monitor for clinical changes -I have consulted and spoken directly to Dr. Myrick regarding this case, in case surgical intervention is recommended or required, or to determine if sampling recommended or required -I am hesitant to perform an EGD at this time for assessment of the duodenum for possible ulceration, as this may be relatively contraindicated in a patient if this is a contained perforation. Patient with persistently worsening anemia , with iron deficiency, may be consistent with peptic ulcer disease but with overall improving clinical course will avoid EGD for now. If this is in fact a results of pancreatitis, may continue to organize for later drainage. Less likely possibility that this is the source of the patient's pancreatitis in this younger aged patient without prior tobacco use or known family history of pancreatic cancer. Currently not ordering a CA-19-9 as this can be falsely elevated in the setting of acute pancreatitis. This was discussed with Dr. Myrick who also did not see indication for acute change in management at this time. -still awaiting follow-up labs Myesha Doyle MD, MPH STAFF FOAM RUBBER FABRICATOR Current Visit: Yes (4) DTs (delirium tremens) Status: Acute Assessment and plan: PLEASE NOTE -- automatic citation of patient information is unavoidable in this electronic note. I have made a reasonable effort to review the information cited , but it is not a part of my evaluation, impression, or recommendation unless specifically discussed in the dictated text that follows. As well, voice recognition software was used in the creation of this clinical note. Reasonable effort was made to identify and correct gross errors. Despite proofreading, errors in food service technician may be present, including nonsense verbiage at times. If you encounter such an error, please contact me at for discussion and correction. -- Vivek Chief complaint: Pancreatitis and peripancreatic mass 24 hour events: Patient went into florid delirium tremens yesterday, is now intubated and sedated, seen by surgery Subjective: Jim Lin is sedated and intubated today. And unable to report subjective complaints. Medications: Personally reviewed Propofol drip Previously scheduled Librium, now replaced by as needed benzodiazepines REVIEW OF SYSTEMS: Unable to perform due to patient condition PHYSICAL EXAMINATION: CONSTITUTIONAL: Vital signs reviewed as documented above. Intubated, sedated, significant bilateral upper extremity muscle contractions and shakes. Heart rate maintained in the high 80s. EYES: Anicteric conjunctiva. Pupils are normal size unresponsive, without nystagmus. MOUTH: ET tube in place NECK: No masses or crepitus. Thyroid is of normal size and symmetric. HEART: Regular rate, regular rhythm, borderline tachycardia from high 80s to low 90s LUNGS: Clear to auscultation bilaterally. No increased work of breathing or accessory muscle use. GI/ABDOMEN: Nonobese abdomen, soft, compressible. Unable to assess pain today. SKIN: No rash on face, arms, or hands. No palpable lesions Neuro: Significant symmetric upper extremity increase in muscle tone, fisting of both hands, slight repetitive shaking movements. Does not respond to voice as is on propofol drip. Laboratory: Personally reviewed CBC with white blood cell count 3.6, hemoglobin 7.7, platelets 89 Chemistry with sodium 142, potassium 3.1, chloride 114, bicarb 20, BUN 4, creatinine 0.2, glucose 71, calcium 5.9 Liver associated enzymesAST increased slightly to 94, ALT 24 alk phos 101, total bilirubin decreased to 1.5, total protein 5, albumin 1.5 Lipase 321 Toxicology report since admission, now positive for medications we have been giving him including opiates, barbiturates, benzodiazepines. Please note that outside toxicology report was done at transferring hospital which was completely negative. Radiology: Personally reviewed images , no report available. I personally reviewed the chest x-ray, good position of ET tube, no acute abnormality. Assessments: #Acute pancreatitishad been improving, clinical assessment now limited by alcohol withdrawal delirium tremens requiring intubation and sedation. Although lipase is not used to assess clinical resolution, this is normalizing. Patient is also indicated the prior 2 days that his diet had returned. #Peripancreatic head masssee prior note for broad differential. Surgery has evaluated and believes this is more related to pancreatic etiology then duodenum. No evidence of biliary obstruction based on labs. Hemoglobin continued to down trend #Alcohol withdrawal. Severe. With delirium tremens. Prior seizure on Keppra, also very likely related to prior alcohol withdrawal based on limited history and current clinical picture. #Anemiawith evidence of iron deficiency. Hemoglobin continuing to down trend without evidence of overt bleeding. #Other specified counseling -- The patient was seen for greater than 30 minutes. The patient was counseled for greater than 50% of this time regarding differential diagnosis, likely diagnosis, diagnostic and therapeutic alternatives, risks/benefits/alternatives of medications and procedures, and plan of care generally. The patient expressed understanding and wishes to proceed. Recommendations: -Continue with high-volume fluids, defer antibiotic regimen to primary team and surgery consult -Recommend attempt repeat MRI with MRCP once patient tremulousness is under better control, while he is sedated. -Alcohol withdrawal management per primary team, recommend aggressive benzodiazepines, with propofol as sedation treatment only, continue Keppra -Recommend NG tube nutrition, starting with trickle feeds, to ensure patient tolerates. Dr. Angelo has consulted nutrition for this, which will additionally be helpful as the patient appears to be significantly nutritionally deficient. -Electrolyte replacement per primary team -Continue to monitor anemia, minimize blood draws, recommend pediatric tubes to minimize iatrogenic blood loss, EGD and colonoscopy as an inpatient or outpatient once stable for iron deficiency anemia -Transfuse for hemoglobin less than 7, consider IV iron infusion as well while patient is in the hospital Myesha Doyle MD, MPH STAFF [employer] RU[employer]ER FABRICATOR Current Visit: Yes Exam (Progress Note) - Constitutional Vitals: Period Temp Pulse Resp BP Sys/Long Pulse Ox Last 24 Hr 97.0 F-99.1 F 59-115 12-31 89-147/47-98 94-100 Results - Labs CBC & BMP: 04/07/17 05:43 04/07/17 05:43
--- NOTE | 2017-04-07 11:52 | General Surgery Progress Note ---
Assessment and Plan (1) Pancreatitis Status: Acute Assessment and plan: Impression: Pancreatitis Plan: Continue supportive care. Recommend MRCP when the patient is stable. Bilirubin is improved and his lipase is normal. Current Visit: Yes Subjective Narrative: Remains intubated and sedated. No events. Appears more stable. Family was present and confirmed that he drinks alcohol on a daily basis. Usually around a sixpack of beer and occasionally liquor as well. Exam - Constitutional Vitals: Period Temp Pulse Resp BP Sys/Long Pulse Ox Last 24 Hr 97.0 F-99.1 F 59-115 12-31 89-147/47-98 94-100 General appearance: no acute distress - Respiratory Respiratory exam: Present: clear to auscultation bilaterally - Cardiovascular Cardiovascular exam: Present: RRR - GI/Abdominal GI/Abdominal exam: Present: soft (Nondistended) Results - Labs CBC & BMP: 04/07/17 05:43 04/07/17 05:43 Lab Results: I have reviewed the past 24 hour labs
[2017-04-07] MEDS: HYDROmorphone 2 MG/1 ML VIAL IV PRN ×2 (11:59→16:12)
--- NOTE | 2017-04-07 12:00 | Hospitalist Progress Note ---
Assessment and Plan - Time spent with patient Time spent with patient: Less than 30 minutes (1) History of seizures Status: Acute Assessment and plan: 36-year-old male admitted by the hospitalist on 04/05/17 with acute alcoholic pancreatitis. He soon developed alcohol withdrawal with delirium tremens and he is now sedated on the ventilator. He is requiring multiple IV drips and as needed medications to stabilize. Pulmonary, GI, and surgery are all following the patient. Dr. Angelo will see and examined patient and further recommendations to follow. Alcohol withdrawal with DTs--we will increase patient's propofol drip, Versed infusion has been added. He is on Haldol, Ativan, Valium, and Dilaudid as needed. With patient having pancreatitis he very well could be in pain so we will increase his Dilaudid to every 2 hours to see if this helps with his stability. Will discuss with Dr. Angelo about restarting his Librium as well. Acute alcoholic pancreatitis--patient is receiving copious amounts of IV fluids. His total bilirubin is down and his lipase is normal this morning. Okay to start tube feeds. Continue Levaquin and Flagyl. Surgery is following. Chronic anemia--patient's H&H is stable at 7.7/26.4 which is only mildly decreased from admission. Can transfuse patient if hemoglobin drops below 7. Pancytopenia--this is new onset today most likely due to his current disease state of liver disease and pancreatitis. He has no signs of petechiae or active bleeding. We will continue to monitor. Current Visit: Yes (2) Anemia Status: Acute Current Visit: No (3) Hypertension Status: Acute Current Visit: No Qualifiers: Hypertension type: essential hypertension Qualified Code(s): I10 - Essential (primary) hypertension (4) Pancreatitis Status: Acute Current Visit: Yes (5) Alcohol abuse Status: Acute Current Visit: Yes (6) Alcohol withdrawal with delirium in inpatient treatment Status: Acute Current Visit: Yes (7) Pancytopenia associated with pancreatitis Status: Acute Current Visit: Yes Hospitalist: Subjective Interval history: Patient is sedated on the vent. Continues to have intermittent jitters. Patient is on propofol and Versed infusion, Haldol, Ativan, Valium, and Dilaudid as needed. Exam - Constitutional Vitals: Period Temp Pulse Resp BP Sys/Long Pulse Ox Last 24 Hr 97.0 F-99.1 F 59-115 12-31 89-147/47-98 94-100 Exam: 36-year-old male, sedated on the vent Chest clear CV regular rate and rhythm Abdomen soft with good bowel sounds Extremities no edema Results - Labs CBC & BMP: 04/07/17 05:43 04/07/17 05:43 Lab Results: I have reviewed the past 24 hour labs - Diagnostic Findings Procedure: Chest x-ray: report reviewed by me (NG tube in satisfactory placement. Low lung volumes.)
[2017-04-07] MEDS: POTASSIUM CHLORIDE RIDER 10 MEQ in PREMIX 1 EACH IV PRN ×3 (13:30→15:31)
[2017-04-07] MEDS ORDERED: DEXTROSE 50% 25 GM/50 ML SYRINGE IV PRN (13:43)
[2017-04-07] MEDS ORDERED: GLUCAGON 1 MG VIAL IM PRN (13:43)
[2017-04-07] MEDS ORDERED: PNEUMOCOCCAL VACCINE (13 VALENT) 0.5 ML SYRINGE IM ONE (16:42)
[2017-04-07] MEDS ORDERED: AMINO ACIDS/DEXT/LYTES 4.25-5% 2,000 ML IV SCH (17:00)
[2017-04-07] MEDS: LEVOFLOXACIN INJ 500 MG in PREMIX 1 EACH IV SCH (17:14)
[2017-04-07] MEDS: ENOXAPARIN 40 MG/0.4 ML SYRINGE SUBCUT SCH (17:14)
[2017-04-07] MEDS: INSULIN REGULAR 100 UNIT/ML SUBCUT SCH (18:42)
[2017-04-08] MEDS: PROPOFOL 1,000 MG/100 ML BOTTLE IV SCH ×3 (01:13→18:52)
[2017-04-08] MEDS: INSULIN REGULAR 100 UNIT/ML SUBCUT SCH ×3 (01:13→12:19)
[2017-04-08] MEDS: metroNIDAZOLE INJ 500 MG in PREMIX 1 EACH IV SCH ×4 (01:16→19:43)
[2017-04-08] MEDS: SODIUM CHLORIDE 0.9% 1,000 ML IV SCH ×5 (03:12→22:33)
[2017-04-08 03:56] LABS: ABG Base Excess -3.3 MMOL/L (-2.5-2.5); ABG HCO3 21.7 MMOL/L (20-26); ABG Oxygen Saturation 99.7 % (95-100); ABG PCO2 33.2 MM HG (35-48); ABG PH 7.406 (7.35-7.45); ABG TCO2 19.5 MMOL/L (23-27)
[2017-04-08] MEDS: HYDROmorphone 2 MG/1 ML VIAL IV PRN ×5 (04:13→22:19)
[2017-04-08 05:58] LABS: Basophils # 0.1 10*3/uL (0.0-0.2); Basophils % 1.5 % (0.0-0.8); Eosinophils # 0.2 10*3/uL (0.0-0.87); Eosinophils % 3.7 % (0.00-10.9); Hematocrit 25.5 VOL% (42.0-52.0); Hemoglobin 7.5 GM/DL (14.0-18.0); Immature Granulocytes % 0.7 %; Immature Granulocytes Absolute 0.03 #; Lymphocytes # 0.5 10*3/uL (1.4-4.0); Lymphocytes % 11.2 % (21.2-54.2); Mean Corpuscular HGB Conc 29.4 GM/DL (32-36); Mean Corpuscular Hemoglobin 25 PG (27-34); Mean Corpuscular Volume 83.9 FL (87-102); Monocytes # 0.7 10*3/uL (0.11-0.8); Monocytes % 16.9 % (1.7-12.7); Neutrophils # 2.7 10*3/uL (1.4-7.4); Platelet Count 97 T/CUMM (130-400); Red Blood Count 3.04 MC/CUMM (3.8-5.5); Red Cell Distribution Width 19.2 % (9.3-17.3)
[2017-04-08 06:34] LABS: Eosinophils 2 % (0-10); Lymphocytes 11 % (20-55); Segmented Neutrophils 71 % (50-85); Total Cells Counted 100
[2017-04-08 06:35] LABS: Hypochromasia 2+; Microcytosis 1+
[2017-04-08 06:36] LABS: Platelet Estimate Decreased; Target Cells Slight
[2017-04-08 06:45] LABS: Albumin 1.9 G/DL (3.4-5.0); Bilirubin,Total 2.8 MG/DL (0.2-1.0); Calcium 7.6 MG/DL (8.5-10.1); Osmolality,Calculated 270.7 MOS/KG (273-304); Potassium 3.1 MMOL/L (3.5-5.1); Total Protein 5.9 G/DL (6.4-8.3)
[2017-04-08 06:49] LABS: Phosphorous 2.9 MG/DL (2.5-4.9); Prealbumin 9.2 MG/DL (20-40)
[2017-04-08] MEDS: POTASSIUM CHLORIDE RIDER 10 MEQ in PREMIX 1 EACH IV PRN ×4 (07:37→12:50)
--- NOTE | 2017-04-08 07:56 | XRay Report ---
Portable chest April 08, 2017. 0353 hours Indication: Difficulty breathing, intubated Comparison images from previously measuring hours Findings: Low lung volumes. Cardiomediastinal contours are stable. Tubes and lines remain in satisfactory. No consolidative chest process. Visualized upper abdomen is unremarkable. No acute osseous abnormalities Impression: Stable chest. No acute cardiopulmonary findings PROCEDURE INTERPRETED AT [facility] DEPARTMENT OF RADIOLOGY Final Report Signed by: Himanshu Simmons
[2017-04-08] MEDS: DIAZEPAM 10 MG/2 ML SYRINGE IV PRN (08:45)
[2017-04-08] MEDS: PANTOPRAZOLE 40 MG VIAL IV SCH (09:50)
[2017-04-08] MEDS: FOLIC ACID IV SCH (09:50)
[2017-04-08] MEDS: SODIUM CHLORIDE 0.9% IV SCH (09:50)
[2017-04-08] MEDS: THIAMINE IV SCH (09:50)
--- NOTE | 2017-04-08 09:54 | Hospitalist Progress Note ---
Assessment and Plan (1) Alcohol withdrawal with delirium in inpatient treatment Status: Acute Assessment and plan: The patient will receive scheduled Valium and Haldol. We will hold the doses if he becomes oversedated. The patient can be reintubated if required. We will recheck electrolytes tomorrow and replete potassium overnight. Current Visit: Yes (2) DTs (delirium tremens) Status: Acute Current Visit: Yes Hospitalist: Subjective Interval history: Mr. Lin is admitted to the hospital and has developed delirium tremens. The patient was intubated overnight due to agitation. The patient extubated himself this morning and is now breathing comfortably. The patient remains delirious. I discussed and coordinate care with Dr. Palmer. I made changes to the patient's sedation schedule. He appears under sedated at the present time and I am going to change his medicines to schedule, hold if sedated. Exam - Constitutional Vitals: Period Temp Pulse Resp BP Sys/Long Pulse Ox Last 24 Hr 97.1 F-98.8 F 53-101 12-132 97-126/50-84 100-100 Exam: Constitutional System: Moderate distress. Moderate tremulousness. The patient is delirious Head: Normocephalic, atraumatic. Ears, Nose and Throat System: No evidence of Otitis or Mastoiditis. No epistaxis or discharge Eyes System: Pupils equal, round, and reactive. Extraocular muscles intact. Neck: Supple, without adenopathy, No jugular venous distention. No thyromegaly , neck mass, or prior surgery apparent. Respiratory System: Chest clear to auscultation. Cardiovascular System: Heart with regular rate and rhythm. No murmur. GI System: Abdomen soft, nontender. Normo active bowel sounds present. Musculoskeletal System: limbs with no pedal edema. Full distal pulses. Neurological System: No discernable sensory deficit. No aphasia Capillary Refill: less than 3 sec Results - Labs CBC & BMP: 04/08/17 05:08 04/08/17 05:08 Lab Results: I have reviewed the past 24 hour labs
[2017-04-08] MEDS: HALOPERIDOL 5 MG/ML AMP IV SCH ×4 (10:03→22:32)
[2017-04-08] MEDS: DIAZEPAM 10 MG/2 ML SYRINGE IV SCH ×14 (10:03→23:05)
--- NOTE | 2017-04-08 12:53 | General Surgery Progress Note ---
Assessment and Plan (1) Pancreatitis Status: Acute Assessment and plan: Impression: Pancreatitis Plan: For EGD today. No significant change in clinical condition. Appears stable. Current Visit: Yes Subjective Narrative: Events noted. Patient apparently had a smear of blood per rectum overnight. He is going for EGD today. Exam - Constitutional Vitals: Period Temp Pulse Resp BP Sys/Long Pulse Ox Last 24 Hr 97.1 F-99.4 F 53-101 11-132 97-121/50-86 100-100 General appearance: no acute distress - Respiratory Respiratory exam: Present: clear to auscultation bilaterally - Cardiovascular Cardiovascular exam: Present: RRR - GI/Abdominal GI/Abdominal exam: Present: soft - Skin Skin exam: Present: normal color Results - Labs CBC & BMP: 04/08/17 05:08 04/08/17 05:08 Lab Results: I have reviewed the past 24 hour labs
--- NOTE | 2017-04-08 12:54 | Gastrointestinal Progress Note ---
Assessment and Plan (1) Anemia Status: Acute Assessment and plan: 04/08-H&H noted at 7.5/25.5 without overt bleeding at this time. No transfusion at this time. EGD scheduled for today currently postponed to tomorrow due to self extubation and continued lethargy. Continue to monitor present time. Plan an addendum to followed by Dr. Gutierrez. Current Visit: No (2) Pancreatitis Status: Acute Assessment and plan: 04/08-lipase level normalized at present time. CT of abdomen (IV contrast) noted with ill-defined mass involving pancreatic head and second portion of duodenum. Vital signs are currently stable. Continue to monitor present time. Plan an addendum to followed by Dr. Gutierrez. Current Visit: Yes Gastroenterology - PN: Subj Interval history: CC: Pancreatitis, anemia Patient is seen, somnolent and somewhat lethargic. He was intubated however this morning he self extubated and appears to be breathing comfortably. He reportedly is having continued delirium as well as agitation and has had his sedation schedule reassess. He was scheduled for an EGD today but due to the events of this morning and his increase lethargy, we will hold off and continue to monitor present time and tentatively reschedule this for tomorrow. His H&H is holding at 7.5/25.5 and has not required blood transfusion thus far. Patient is also noted to be high hypokalemia at 3.1 with potassium riders going at this time. No overt bleeding noted at present time. Abdomen is soft, nontender. Last lipase level was down to 321. ROS: No acute distress at present time. Exam (Progress Note) - Constitutional Vitals: Period Temp Pulse Resp BP Sys/Long Pulse Ox Last 24 Hr 97.1 F-99.4 F 53-101 11-132 97-121/50-86 100-100 General appearance: normal weight, no acute distress - Head Head exam: Present: normal inspection, normocephalic - Eye Eye exam: Present: other (Lids and conjunctivae are unremarkable). Absent: scleral icterus - ENT ENT exam: Present: normal exam, normal oropharynx - Neck Neck exam: Present: normal inspection - Respiratory Respiratory exam: Present: clear to auscultation bilaterally. Absent: rales, rhonchi, wheezes - Cardiovascular Cardiovascular exam: Present: regular rate and rhythm. Absent: diastolic murmur , JVD, systolic murmur - GI/Abdominal GI/Abdominal exam: Present: normal bowel sounds, soft. Absent: ascites, distended, mass, organomegaly, tenderness - Extremities Exam Extremities exam: Present: normal inspection, full ROM - Back Exam Back exam: Present: normal inspection - Neurological Exam Neurological exam: Present: altered - Psychiatric Psychiatric exam: Present: other - Skin Skin exam: Present: normal color, warm, dry Results - Labs CBC & BMP: 04/08/17 05:08 04/08/17 05:08 Lab Results: I have reviewed the past 24 hour labs
--- NOTE | 2017-04-08 13:46 | Pulmonology Progress Note ---
Pulmonary - PN: Subj Interval history: This is a 36-year-old male. I saw him in pulmonary consultation on 04/07/2017. This patient had acute pancreatitis. He appeared to have delirium tremors. He required intubation mechanical ventilation. My impressions were 1. Acute pancreatitis. 2. Possible pseudocyst of the pancreas 3. Alcoholism 4. Probable DTs 5. Intubation and mechanical ventilation in order to protect the patient's airways. 6. See past history 7. Hypokalemia 9. Iron deficiency anemia 8. Hypoproteinemia and hypoalbuminemia 04/08/2017. This patient was seen earlier today and then again around 1 PM.His chest x-ray showed mild cardiomegaly. There were no infiltrates, no mass, no heart failure and no pneumothoraces. ABGs on FiO2 40% and mechanical ventilation showed a pH of 7.406, PCO2 33, PO2 of 150 and a bicarb of 21.7. Potassium was low at 3.1 sodium was normal. Creatinine was 0.5 BUN was 4. Total bilirubin was 2.8. Alkaline [place] was 138. AST was elevated at 119 and ALT was normal at 30. H&H was 7.5/25.5. White count was 4000 with 66 segs 17 lymphs and platelets were 97,000. Patient appeared to be stable. His weaning protocol was advanced. 1-2 hours later the patient extubated himself. On my exam he looks like he is moving air fine his O2 sats look good. His follow-up ABGs are pending and I suspect will be 5. Microbiology shows no growth. Have started the patient on nebulizers 4 times daily and as needed and will follow up with chest x-ray and ABGs tomorrow. Physical exam. Psychiatric. Think the patient is oriented 3. He still a little agitated but not like before Neurologic. Cranial nerves are intact. Long track motor functions intact Face. Symmetrical. No edema of the tongue or lips. Neck. Symmetrical. No meningismus Lymphatics. No submandibular cervical supraclavicular or epitrochlear adenopathy Chest. Mild coarse large airway congestion. No wheeze no stridor Heart. No gallop Abdomen nondistended. Rare bowel sounds Extremities. Nothing to suggest deep venous thrombophlebitis. The remainder the physical exam is negative Plan. 04/07/2017 1. Mechanical ventilation with weaning and physical therapy protocol 2. Ammonia level 3. Potassium replacement 4. See order 04/08/2017 1. Patient has self extubated himself. Discontinue weaning protocol 2. Follow-up chest x-ray ABGs 3. Inhalation therapy with DuoNeb's 4 times daily and as needed 4. Follow-up ABGs Exam (Progress Note) - Constitutional Vitals: Period Temp Pulse Resp BP Sys/Long Pulse Ox Last 24 Hr 97.1 F-99.4 F 53-101 11-132 97-121/50-86 100-100 Results - Labs CBC & BMP: 04/08/17 05:08 04/08/17 05:08
[2017-04-08] MEDS: LEVOFLOXACIN INJ 500 MG in PREMIX 1 EACH IV SCH (16:10)
[2017-04-09] MEDS: DIAZEPAM 10 MG/2 ML SYRINGE IV SCH ×17 (00:12→23:10)
[2017-04-09] MEDS: HYDROmorphone 2 MG/1 ML VIAL IV PRN ×3 (01:49→17:15)
[2017-04-09] MEDS: metroNIDAZOLE INJ 500 MG in PREMIX 1 EACH IV SCH ×4 (01:52→20:32)
[2017-04-09] MEDS: HALOPERIDOL 5 MG/ML AMP IV SCH ×5 (01:52→21:44)
[2017-04-09] MEDS: SODIUM CHLORIDE 0.9% 1,000 ML IV SCH ×5 (03:30→22:59)
[2017-04-09 08:03] LABS: Basophils # 0.1 10*3/uL (0.0-0.2); Basophils % 1.3 % (0.0-0.8); Eosinophils # 0.1 10*3/uL (0.0-0.87); Eosinophils % 1.3 % (0.00-10.9); Hemoglobin 7.1 GM/DL (14.0-18.0); Immature Granulocytes % 0.7 %; Immature Granulocytes Absolute 0.05 #; Lymphocytes # 0.8 10*3/uL (1.4-4.0); Lymphocytes % 11.4 % (21.2-54.2); Mean Corpuscular HGB Conc 29.6 GM/DL (32-36); Mean Corpuscular Hemoglobin 25 PG (27-34); Mean Corpuscular Volume 83.3 FL (87-102); Mean Platelet Volume 10.1 FL (9.6-12.0); Monocytes # 0.9 10*3/uL (0.11-0.8); Monocytes % 13.3 % (1.7-12.7); Platelet Count 107 T/CUMM (130-400); Red Blood Count 2.88 MC/CUMM (3.8-5.5); Red Cell Distribution Width 19.4 % (9.3-17.3); White Blood Count 6.9 T/CUMM (4-12)
[2017-04-09 08:23] LABS: Band Neutrophils 1 % (0-10); Eosinophils 3 % (0-10); Giant Platelets Few; Hypochromasia 1+; Lymphocytes 5 % (20-55); Platelet Estimate Decreased; Segmented Neutrophils 84 % (50-85); Total Cells Counted 100
[2017-04-09 08:24] LABS: Microcytosis Slight
[2017-04-09 08:40] LABS: Calcium 7.4 MG/DL (8.5-10.1); Magnesium 1.4 MG/DL (1.8-2.4); Osmolality,Calculated 270.7 MOS/KG (273-304); Potassium 2.9 MMOL/L (3.5-5.1)
[2017-04-09] MEDS ORDERED: MAGNESIUM SULF RIDER 4 GM in PREMIX 1 EACH IV ONE (08:56)
--- NOTE | 2017-04-09 09:01 | Hospitalist Progress Note ---
Assessment and Plan (1) Alcohol withdrawal with delirium in inpatient treatment Status: Acute Assessment and plan: The patient will receive scheduled Valium and Haldol. I am going to increase interval on Valium and Haldol today. We will hold the doses if he becomes oversedated. The patient can be reintubated if required. We will continue potassium repletion and we will replace magnesium. We will recheck electrolytes tomorrow. Current Visit: Yes (2) DTs (delirium tremens) Status: Acute Current Visit: Yes Hospitalist: Subjective Interval history: The patient is sedated but arousable. The patient has less agitation but still requires wrist restraints for safety of devices. The patient is receiving frequent sedation. The patient's breathing appears appropriate, and without distress Exam - Constitutional Vitals: Period Temp Pulse Resp BP Sys/Long Pulse Ox Last 24 Hr 99.1 F-100.6 F 83-136 4-24 83-141/64-94 97-100 Exam: Constitutional System: Minimal distress. No tremulousness. The patient is delirious. He is sleeping but arousable Head: Normocephalic, atraumatic. Ears, Nose and Throat System: No evidence of Otitis or Mastoiditis. No epistaxis or discharge Eyes System: Pupils equal, round, and reactive. Extraocular muscles intact. Neck: Supple, without adenopathy, No jugular venous distention. No thyromegaly , neck mass, or prior surgery apparent. Respiratory System: Chest clear to auscultation. Cardiovascular System: Heart with regular rate and rhythm. No murmur. GI System: Abdomen soft, nontender. Normo active bowel sounds present. Results - Labs CBC & BMP: 04/09/17 07:53 04/09/17 07:53 Lab Results: I have reviewed the past 24 hour labs
[2017-04-09] MEDS: PANTOPRAZOLE 40 MG VIAL IV SCH (09:19)
[2017-04-09] MEDS: THIAMINE IV SCH (09:36)
[2017-04-09] MEDS: FOLIC ACID IV SCH (09:36)
[2017-04-09] MEDS: SODIUM CHLORIDE 0.9% IV SCH (09:36)
[2017-04-09] MEDS: POTASSIUM CHLORIDE RIDER 10 MEQ in PREMIX 1 EACH IV PRN ×5 (09:50→15:47)
--- NOTE | 2017-04-09 11:11 | Pulmonology Progress Note ---
Pulmonary - PN: Subj Interval history: This is a 36-year-old male. I saw him in pulmonary consultation on 04/07/2017. This patient had acute pancreatitis. He appeared to have delirium tremors. He required intubation mechanical ventilation. My impressions were 1. Acute pancreatitis. 2. Possible pseudocyst of the pancreas 3. Alcoholism 4. Probable DTs 5. Intubation and mechanical ventilation in order to protect the patient's airways. 6. See past history 7. Hypokalemia 9. Iron deficiency anemia 8. Hypoproteinemia and hypoalbuminemia 04/08/2017. This patient was seen earlier today and then again around 1 PM.His chest x-ray showed mild cardiomegaly. There were no infiltrates, no mass, no heart failure and no pneumothoraces. ABGs on FiO2 40% and mechanical ventilation showed a pH of 7.406, PCO2 33, PO2 of 150 and a bicarb of 21.7. Potassium was low at 3.1 sodium was normal. Creatinine was 0.5 BUN was 4. Total bilirubin was 2.8. Alkaline Decker was 138. AST was elevated at 119 and ALT was normal at 30. H&H was 7.5/25.5. White count was 4000 with 66 segs 17 lymphs and platelets were 97,000. Patient appeared to be stable. His weaning protocol was advanced. 1-2 hours later the patient extubated himself. On my exam he looks like he is moving air fine his O2 sats look good. His follow-up ABGs are pending and I suspect will be 5. Microbiology shows no growth. Have started the patient on nebulizers 4 times daily and as needed and will follow up with chest x-ray and ABGs tomorrow. 04/09/2017. Patient is extubated he is doing well from a pulmonary standpoint. He did not have a chest x-ray and ABGs today. His potassium is low at 2.9. CBC is stable. Magnesium is low at 1.6. From a pulmonary standpoint he is doing well. I will sign off. His reconsult when needed. Physical exam. Psychiatric. Think the patient is oriented 3. He still a little agitated but not like before Neurologic. Cranial nerves are intact. Long track motor functions intact Face. Symmetrical. No edema of the tongue or lips. Neck. Symmetrical. No meningismus Lymphatics. No submandibular cervical supraclavicular or epitrochlear adenopathy Chest. Mild coarse large airway congestion. No wheeze no stridor Heart. No gallop Abdomen nondistended. Rare bowel sounds Extremities. Nothing to suggest deep venous thrombophlebitis. The remainder the physical exam is negative Plan. 04/07/2017 1. Mechanical ventilation with weaning and physical therapy protocol 2. Ammonia level 3. Potassium replacement 4. See order 04/08/2017 1. Patient has self extubated himself. Discontinue weaning protocol 2. Follow-up chest x-ray ABGs 3. Inhalation therapy with DuoNeb's 4 times daily and as needed 4. Follow-up ABGs 04/09/2017. 1. See today's note above. 2. We will sign off. Please reconsult when needed Exam (Progress Note) - Constitutional Vitals: Period Temp Pulse Resp BP Sys/Long Pulse Ox Last 24 Hr 99.1 F-100.6 F 83-136 4-18 83-141/53-94 97-100 Results - Labs CBC & BMP: 04/09/17 07:53 04/09/17 07:53
--- NOTE | 2017-04-09 12:06 | General Surgery Progress Note ---
Assessment and Plan (1) Pancreatitis Status: Acute Assessment and plan: Alcoholic pancreatitis with possible cyst. EGD is currently pending. Patient appears to be improving gradually. We will continue to follow along and make recommendations to proceed with MRCP as warranted. Current Visit: Yes Subjective Patient reports: Present: other (Patient remains sedated. He is stable. EGD was canceled yesterday and is pending for today.) Exam - Constitutional Vitals: Period Temp Pulse Resp BP Sys/Long Pulse Ox Last 24 Hr 99.1 F-100.6 F 83-136 4-18 83-141/53-94 97-100 General appearance: no acute distress, other (Sedated) - GI/Abdominal GI/Abdominal exam: Present: soft, other (Patient slightly winces with palpation of the upper abdomen). Absent: distended, firm Results - Labs CBC & BMP: 04/09/17 07:53 04/09/17 07:53 Lab Results: I have reviewed the past 24 hour labs
[2017-04-09] MEDS ORDERED: LIDOCAINE 1% 5 ML VIAL ONE (13:31)
[2017-04-09] MEDS ORDERED: PROPOFOL 200 MG/20 ML VIAL IV ONE (13:31)
--- NOTE | 2017-04-09 13:32 | History and Physical Update ---
History and Physical Update - History and Physical H&P was reviewed, the patient examined and there: are no changes in the patients condition since last H&P was completed. - Physical Exam Mental Status: other (Awake, lethargic) Heart: regular rate and rhythm Lung: clear to auscultation Abdomen: within normal limits Vitals: within normal limits
--- NOTE | 2017-04-09 13:51 | Anesthesia Post-Op ---
Anesthesia Post OP - Post Ansesthetic Evaluation Patient seen in post op: Yes Resp: within normal limits CV: within normal limits Mental: within normal limits Temp: within normal limits [id number]: within normal limits Nausea and Vomiting: within normal limits Pain: within normal limits
--- NOTE | 2017-04-09 13:51 | Operative Note ---
Date of procedure: 04/09/17 Pre-op diagnosis: Recent GI bleed with melena Procedure: Procedure: Esophagogastroduodenoscopy Brief clinical abstract: 36-year-old male with alcoholic liver disease is admitted with acute pancreatitis and delirium tremens. He had an episode of melena 3-4 days ago. Indication for procedure: GI bleed with melena Endoscopic findings:[After informed consent was obtained, the patient was placed in the left lateral decubitus position. The gastroscope was inserted in the upper esophagus under direct vision with no resistance encountered. Esophageal mucosa appeared normal with squamocolumnar junction sharply demarcated at the diaphragmatic indentation. The endoscope was advanced in the stomach which was carefully examined including retroflexed view of the cardia and fundus. No blood was noted in the stomach. 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 These areas were nonfriable and I elected not to coagulate these. No ulcer was seen. The pyloric channel, duodenal bulb, second and third portion of the duodenum were carefully examined with no abnormality seen. The endoscope was removed and patient appeared to tolerate the procedure well. Impression: Watermelon stomach/gastric antral vascular ectasia-with no stigmata of bleeding. Can be associated with portal hypertension. Recommendations: Follow clinically for now. Could consider argon coagulation of these areas later if evident bleeding. Consider colonoscopy later after recovered from present illness given iron deficiency. Anesthesia: MAC Surgeon / Physician: Jong Gutierrez Estimated blood loss: none Specimens: none sent Condition: stable Disposition: post procedure unit Results - Labs CBC & BMP: 04/09/17 07:53 04/09/17 12:09 Discharge Plan - Discharge Medications No Action levETIRAcetam TAB [Keppra Tab] 750 tablet PO BID Topiramate 50 mg PO DAILY Propylene Glycol/Peg 400 [Systane Gel Drops] 1 drop BOTH EYES QID PRN PRN Reason: Dry Eyes - Follow Up or Referral - Forms/Instructions
[2017-04-09] MEDS: LEVOFLOXACIN INJ 500 MG in PREMIX 1 EACH IV SCH (16:50)
[2017-04-09] MEDS: PROPOFOL 1,000 MG/100 ML BOTTLE IV SCH (17:59)
[2017-04-09 19:44] LABS: Potassium 3.7 MMOL/L (3.5-5.1)
[2017-04-09 23:16] LABS: IgA Serum (MAYO) 857 mg/dL (61 - 356)
[2017-04-10] MEDS: SODIUM CHLORIDE 0.9% 1,000 ML IV SCH ×6 (02:05→21:03)
[2017-04-10] MEDS: DIAZEPAM 10 MG/2 ML SYRINGE IV SCH ×12 (02:05→22:16)
[2017-04-10] MEDS: metroNIDAZOLE INJ 500 MG in PREMIX 1 EACH IV SCH ×4 (03:23→20:56)
[2017-04-10] MEDS: HALOPERIDOL 5 MG/ML AMP IV SCH ×4 (03:24→21:01)
[2017-04-10] MEDS: HYDROmorphone 2 MG/1 ML VIAL IV PRN ×4 (03:24→18:16)
[2017-04-10 05:18] LABS: Basophils # 0.1 10*3/uL (0.0-0.2); Basophils % 1.4 % (0.0-0.8); Eosinophils # 0.1 10*3/uL (0.0-0.87); Eosinophils % 1.6 % (0.00-10.9); Hematocrit 24.4 VOL% (42.0-52.0); Hemoglobin 7.3 GM/DL (14.0-18.0); Immature Granulocytes % 0.8 %; Immature Granulocytes Absolute 0.05 #; Lymphocytes # 0.4 10*3/uL (1.4-4.0); Lymphocytes % 6.6 % (21.2-54.2); Mean Corpuscular HGB Conc 29.9 GM/DL (32-36); Mean Corpuscular Hemoglobin 25 PG (27-34); Mean Corpuscular Volume 83.3 FL (87-102); Mean Platelet Volume 10.2 FL (9.6-12.0); Monocytes # 0.8 10*3/uL (0.11-0.8); Neutrophils # 4.8 10*3/uL (1.4-7.4); Neutrophils % 77.6 % (38.7-73.9); Platelet Count 118 T/CUMM (130-400); Red Blood Count 2.93 MC/CUMM (3.8-5.5); Red Cell Distribution Width 19.5 % (9.3-17.3); White Blood Count 6.2 T/CUMM (4-12)
[2017-04-10 05:50] LABS: Calcium 7.7 MG/DL (8.5-10.1); Magnesium 1.5 MG/DL (1.8-2.4); Osmolality,Calculated 272.5 MOS/KG (273-304); Potassium 3.2 MMOL/L (3.5-5.1)
[2017-04-10] MEDS: POTASSIUM CHLORIDE RIDER 10 MEQ in PREMIX 1 EACH IV PRN ×7 (06:08→15:43)
[2017-04-10] MEDS: PANTOPRAZOLE 40 MG VIAL IV SCH (08:41)
[2017-04-10] MEDS: SODIUM CHLORIDE 0.9% IV SCH (09:30)
[2017-04-10] MEDS: FOLIC ACID IV SCH (09:30)
[2017-04-10] MEDS: THIAMINE IV SCH (09:30)
--- NOTE | 2017-04-10 10:34 | General Surgery Progress Note ---
Assessment and Plan (1) Pancreatitis Status: Acute Assessment and plan: Alcoholic pancreatitis with possible cyst. EGD with no active bleeding. Patient appears to be improving gradually. We will continue to follow along and make recommendations to proceed with MRCP as warranted. Current Visit: Yes Subjective Patient reports: Present: other (T-max 100.5 overnight. Continues on Levaquin Flagyl. No leukocytosis. Patient is sedated.) Exam - Constitutional Vitals: Period Temp Pulse Resp BP Sys/Long Pulse Ox Last 24 Hr 98 F-100.5 F 66-112 10-20 106-135/55-89 93-100 General appearance: other (Sedated. ) - GI/Abdominal GI/Abdominal exam: Present: soft, other (hypoactive bowel sounds). Absent: tenderness (does not wince with palpation of abdomen today) Results - Labs CBC & BMP: 04/10/17 04:42 04/10/17 04:42 Lab Results: I have reviewed the past 24 hour labs
--- NOTE | 2017-04-10 11:29 | Gastrointestinal Progress Note ---
Assessment and Plan (1) Anemia Status: Acute Assessment and plan: 04/10-H&H remained stable at this time. No reports of overt bleeding. EGD findings noted as below. Continue to monitor present time. Plan an addendum follow Dr. Gutierrez. 04/08-H&H noted at 7.5/25.5 without overt bleeding at this time. No transfusion at this time. EGD scheduled for today currently postponed to tomorrow due to self extubation and continued lethargy. Continue to monitor present time. Plan an addendum to followed by Dr. Gutierrez. Current Visit: No (2) Pancreatitis Status: Acute Assessment and plan: 04/08-lipase level normalized at present time. CT of abdomen (IV contrast) noted with ill-defined mass involving pancreatic head and second portion of duodenum. Vital signs are currently stable. Continue to monitor present time. Plan an addendum to followed by Dr. Gutierrez. Current Visit: Yes Gastroenterology - PN: Subj Interval history: CC: GI bleed, melena Patient is seen, asleep in bed, however awakens minimally to verbal stimuli. He will respond to simple questions but falls back asleep. No further reports of overt bleeding. H&H is stable at 724. EGD on yesterday noted to show watermelon stomach/gastric antral vascular ectasia without stigmata of bleeding. His H&H has remained unchanged at this time. He has no complaints of pain during exam today. Abdomen is soft, nontender. ROS: No acute distress noted Exam (Progress Note) - Constitutional Vitals: Period Temp Pulse Resp BP Sys/Long Pulse Ox Last 24 Hr 98 F-100.5 F 66-112 10-20 106-135/59-89 93-100 - Other Additional findings: General appearance: normal weight, no acute distress - Head Head exam: Present: normal inspection, normocephalic - Eye Eye exam: Present: other (Lids and conjunctivae are unremarkable). Absent: scleral icterus - ENT ENT exam: Present: normal exam, normal oropharynx - Neck Neck exam: Present: normal inspection - Respiratory Respiratory exam: Present: clear to auscultation bilaterally. Absent: rales, rhonchi, wheezes - Cardiovascular Cardiovascular exam: Present: regular rate and rhythm. Absent: diastolic murmur , JVD, systolic murmur - GI/Abdominal GI/Abdominal exam: Present: normal bowel sounds, soft. Absent: ascites, distended, mass, organomegaly, tenderness - Extremities Exam Extremities exam: Present: normal inspection, full ROM - Back Exam Back exam: Present: normal inspection - Neurological Exam Neurological exam: Present: altered - Psychiatric Psychiatric exam: Present: other - Skin Skin exam: Present: normal color, warm, dry Results - Labs CBC & BMP: 04/10/17 04:42 04/10/17 04:42 Lab Results: I have reviewed the past 24 hour labs
--- NOTE | 2017-04-10 13:30 | Hospitalist Progress Note ---
Assessment and Plan (1) Alcohol withdrawal with delirium in inpatient treatment Status: Acute Assessment and plan: The patient will receive scheduled Valium and Haldol. I am going to increase interval on Valium and Haldol again today. We will hold the doses if he becomes oversedated. The patient's hemoglobin is stable and is not having further stigmata of bleeding. Current Visit: Yes (2) DTs (delirium tremens) Status: Acute Current Visit: Yes Hospitalist: Subjective Interval history: The patient is admitted to intensive care unit and has delirium tremens. The patient is improving. He is presently well sedated and not having agitation. The patient is reasonably cooperative. The patient appears to continue with some hallucinosis and misinterpretation of the environment. The patient had EGD yesterday and was found to have gastropathy. Exam - Constitutional Vitals: Period Temp Pulse Resp BP Sys/Long Pulse Ox Last 24 Hr 98.2 F-100.5 F 66-112 10-20 90-135/59-89 93-100 Exam: Constitutional System: Minimal distress. No tremulousness. The patient is delirious. He is sleeping but arousable Head: Normocephalic, atraumatic. Ears, Nose and Throat System: No evidence of Otitis or Mastoiditis. No epistaxis or discharge Eyes System: Pupils equal, round, and reactive. Extraocular muscles intact. Neck: Supple, without adenopathy, No jugular venous distention. No thyromegaly , neck mass, or prior surgery apparent. Respiratory System: Chest clear to auscultation. Cardiovascular System: Heart with regular rate and rhythm. No murmur. GI System: Abdomen soft, nontender. Normo active bowel sounds present. Results - Labs CBC & BMP: 04/10/17 04:42 04/10/17 12:17 Lab Results: I have reviewed the past 24 hour labs
[2017-04-10] MEDS: LEVOFLOXACIN INJ 500 MG in PREMIX 1 EACH IV SCH (17:23)
[2017-04-10] MEDS: PROPOFOL 1,000 MG/100 ML BOTTLE IV SCH (19:14)
[2017-04-11] MEDS: HYDROmorphone 2 MG/1 ML VIAL IV PRN ×3 (00:37→23:45)
[2017-04-11] MEDS: DIAZEPAM 10 MG/2 ML SYRINGE IV SCH ×5 (01:08→08:40)
[2017-04-11] MEDS: metroNIDAZOLE INJ 500 MG in PREMIX 1 EACH IV SCH ×4 (01:31→20:27)
[2017-04-11 03:23] LABS: Magnesium 1.5 MG/DL (1.8-2.4); Potassium 3.3 MMOL/L (3.5-5.1)
[2017-04-11] MEDS: HALOPERIDOL 5 MG/ML AMP IV SCH ×2 (03:45→08:39)
[2017-04-11] MEDS: POTASSIUM CHLORIDE RIDER 10 MEQ in PREMIX 1 EACH IV PRN ×4 (06:20→12:04)
[2017-04-11] MEDS ORDERED: MAGNESIUM SULF RIDER 4 GM in PREMIX 1 EACH IV ONE (08:36)
[2017-04-11] MEDS: POTASSIUM CHLORIDE 20 MEQ TABLET PO SCH ×3 (09:04→17:41)
[2017-04-11] MEDS: PANTOPRAZOLE 40 MG VIAL IV SCH (09:10)
[2017-04-11] MEDS: SODIUM CHLORIDE 0.9% 1,000 ML IV SCH ×2 (09:14→16:32)
--- NOTE | 2017-04-11 09:51 | Gastrointestinal Progress Note ---
Assessment and Plan (1) Anemia Status: Acute Assessment and plan: 04/11-awaiting repeat H&H results. No overt bleeding. Tolerating diet. Plan an addendum to followed by Dr. Gutierrez. 04/10-H&H remained stable at this time. No reports of overt bleeding. EGD findings noted as below. Continue to monitor present time. Plan an addendum follow Dr. Gutierrez. 04/08-H&H noted at 7.5/25.5 without overt bleeding at this time. No transfusion at this time. EGD scheduled for today currently postponed to tomorrow due to self extubation and continued lethargy. Continue to monitor present time. Plan an addendum to followed by Dr. Gutierrez. Current Visit: No (2) Pancreatitis Status: Acute Assessment and plan: 04/08-lipase level normalized at present time. CT of abdomen (IV contrast) noted with ill-defined mass involving pancreatic head and second portion of duodenum. Vital signs are currently stable. Continue to monitor present time. Plan an addendum to followed by Dr. Gutierrez. Current Visit: Yes Gastroenterology - PN: Subj Interval history: CC: Anemia Patient is seen awake and alert lying in bed. He does open his eyes and converse minimally today. He denies any abdominal pain, nausea vomiting. There is no report of overt bleeding as well. He is tolerating his diet at this time however does not wish to advance this any further. Abdomen is soft, nontender. No reports at this time agitation. No repeat H&H noted today therefore will order this this morning. ROS: Denies shortness breath or chest pain Exam (Progress Note) - Constitutional Vitals: Period Temp Pulse Resp BP Sys/Long Pulse Ox Last 24 Hr 98.4 F-99.4 F 63-93 10-20 99-140/55-97 92-100 - Other Additional findings: General appearance: normal weight, no acute distress - Head Head exam: Present: normal inspection, normocephalic - Eye Eye exam: Present: other (Lids and conjunctivae are unremarkable). Absent: scleral icterus - ENT ENT exam: Present: normal exam, normal oropharynx - Neck Neck exam: Present: normal inspection - Respiratory Respiratory exam: Present: clear to auscultation bilaterally. Absent: rales, rhonchi, wheezes - Cardiovascular Cardiovascular exam: Present: regular rate and rhythm. Absent: diastolic murmur , JVD, systolic murmur - GI/Abdominal GI/Abdominal exam: Present: normal bowel sounds, soft. Absent: ascites, distended, mass, organomegaly, tenderness - Extremities Exam Extremities exam: Present: normal inspection, full ROM - Back Exam Back exam: Present: normal inspection - Neurological Exam Neurological exam: Present: altered - Psychiatric Psychiatric exam: Present: other - Skin Skin exam: Present: normal color, warm, dry Results - Labs CBC & BMP: 04/10/17 04:42 04/11/17 02:27 Lab Results: I have reviewed the past 24 hour labs
[2017-04-11] MEDS: SODIUM CHLORIDE 0.9% IV SCH (10:18)
[2017-04-11] MEDS: FOLIC ACID IV SCH (10:18)
[2017-04-11] MEDS: THIAMINE IV SCH (10:18)
[2017-04-11 10:20] LABS: Hematocrit 25.9 VOL% (42.0-52.0); Hemoglobin 7.8 GM/DL (14.0-18.0)
[2017-04-11] MEDS ORDERED: HALOPERIDOL 5 MG/ML AMP IM PRN (10:56)
--- NOTE | 2017-04-11 10:59 | Hospitalist Progress Note ---
Assessment and Plan (1) Alcohol withdrawal with delirium in inpatient treatment Status: Acute Assessment and plan: The patient will transition to oral sedative. We will transition Her to oral route. The patient will be re-fed and is ready for transfer to monitored unit. Current Visit: Yes (2) DTs (delirium tremens) Status: Acute Current Visit: Yes Hospitalist: Subjective Interval history: The patient is awake and drowsy this morning as appropriate to his level of sedation. The patient is cooperative and does not require wrist restraints this morning. The patient has no stigmata of bleeding. Exam - Constitutional Vitals: Period Temp Pulse Resp BP Sys/Long Pulse Ox Last 24 Hr 98.4 F-99.4 F 63-93 10-20 99-140/55-97 92-100 Exam: Constitutional System: No distress. No tremulousness. The patient is cooperative and drowsy. Head: Normocephalic, atraumatic. Ears, Nose and Throat System: No evidence of Otitis or Mastoiditis. No epistaxis or discharge Eyes System: Pupils equal, round, and reactive. Extraocular muscles intact. Neck: Supple, without adenopathy, No jugular venous distention. No thyromegaly , neck mass, or prior surgery apparent. Respiratory System: Chest clear to auscultation. Cardiovascular System: Heart with regular rate and rhythm. No murmur. GI System: Abdomen soft, nontender. Normo active bowel sounds present. Results - Labs CBC & BMP: 04/11/17 10:02 04/11/17 02:27 Lab Results: I have reviewed the past 24 hour labs
[2017-04-11] MEDS: levETIRAcetam 500 MG TABLET PO SCH ×2 (11:58→20:25)
[2017-04-11] MEDS: DIAZEPAM 5 MG TABLET PO SCH ×3 (14:01→20:25)
[2017-04-11] MEDS: LOPERAMIDE 2 MG CAPSULE PO PRN ×2 (15:31→20:26)
[2017-04-11] MEDS ORDERED: PNEUMOCOCCAL VACCINE (13 VALENT) 0.5 ML SYRINGE IM ONE (16:42)
[2017-04-11] MEDS: LEVOFLOXACIN INJ 500 MG in PREMIX 1 EACH IV SCH (17:41)
[2017-04-12] MEDS: metroNIDAZOLE INJ 500 MG in PREMIX 1 EACH IV SCH ×4 (01:00→19:39)
[2017-04-12] MEDS: SODIUM CHLORIDE 0.9% 1,000 ML IV SCH (04:15)
[2017-04-12] MEDS: HYDROmorphone 2 MG/1 ML VIAL IV PRN ×3 (04:21→21:30)
[2017-04-12 06:37] LABS: Calcium 8.4 MG/DL (8.5-10.1); Osmolality,Calculated 271.7 MOS/KG (273-304); Potassium 3.4 MMOL/L (3.5-5.1)
[2017-04-12] MEDS: levETIRAcetam 500 MG TABLET PO SCH ×2 (08:03→21:26)
[2017-04-12] MEDS: PANTOPRAZOLE 40 MG TABLET PO SCH (08:03)
[2017-04-12] MEDS: DIAZEPAM 5 MG TABLET PO SCH ×4 (08:04→21:26)
[2017-04-12] MEDS: POTASSIUM CHLORIDE RIDER 10 MEQ in PREMIX 1 EACH IV PRN ×3 (09:36→14:09)
--- NOTE | 2017-04-12 09:46 | Hospitalist Progress Note ---
Assessment and Plan (1) Hypokalemia Status: Acute Assessment and plan: Potassium is 3.4 today. She will receive potassium chloride replacement as per protocol. Current Visit: Yes (2) Pancreatitis Status: Acute Assessment and plan: Her pancreatitis appears to be slowly resolving. She is only experiencing mild abdominal pain at the present time. She is no longer experiencing nausea or vomiting. Current Visit: Yes (3) Alcohol withdrawal with delirium in inpatient treatment Status: Acute Assessment and plan: Resolved. Current Visit: Yes Hospitalist: Subjective Interval history: Patient was transferred from the intensive care unit to the medical surgical unit yesterday. She had been hospitalized here with acute pancreatitis and alcohol withdrawal syndrome. She continues to experience mild abdominal pain. She is not experiencing nausea or vomiting. There is no evidence of delirium tremens at the present time. Exam - Constitutional Vitals: Period Temp Pulse Resp BP Sys/Long Pulse Ox Last 24 Hr 97.1 F-98.6 F 52-96 13-25 101-149/54-105 93-100 General appearance: no acute distress - Head Head exam: Present: normal inspection - Neck Neck exam: Present: normal inspection - Respiratory Respiratory exam: Present: clear to auscultation bilaterally - Cardiovascular Cardiovascular exam: Present: regular rate and rhythm - GI/Abdominal GI/Abdominal exam: Present: normal bowel sounds, soft, other (Nontender with no palpable masses or hepatosplenomegaly.) - Extremities Exam Extremities exam: Present: normal inspection - Neurological Exam Neurological exam: Present: alert, oriented X3 - Psychiatric Psychiatric exam: Present: normal affect - Skin Skin exam: Present: normal color, warm, intact Results - Labs CBC & BMP: 04/11/17 10:02 04/12/17 05:25
--- NOTE | 2017-04-12 14:51 | Gastrointestinal Progress Note ---
Assessment and Plan (1) DTs (delirium tremens) Status: Acute Assessment and plan: This is a patient of Dr. Gutierrez's who I am covering over the weekend while he is off call. The patient is taking Valium to control DTs, he does not appear to be shaking and is not complaining of any pain per se. He is remaining on clear liquids--and I think he would likely be safe to advance his diet to low- fat low-sodium diet how he does with this. He likely would benefit by increasing his calories at this point. I will recheck his lipase level in the morning time to make sure this is stable. Current Visit: Yes (2) Pancreatitis Status: Acute Current Visit: Yes (3) Alcohol abuse Status: Acute Assessment and plan: Likely the source the patient's pancreatitis and current complaints. We need to reemphasize abstinence to this patient in the future. Current Visit: Yes (4) Anemia Status: Acute Assessment and plan: We will recheck his CBC level tomorrow to see where he is at--currently his hematocrit is about 26%. This is up slightly from 2 days ago. Current Visit: No Gastroenterology - PN: Subj Interval history: The patient is minimally reactive/conversant. He is not complaining of any pain , he seems quite sedated on his large doses of Valium and Haldol. Exam (Progress Note) - Constitutional Vitals: Period Temp Pulse Resp BP Sys/Long Pulse Ox Last 24 Hr 97.1 F-99.0 F 52-96 14-20 101-149/54-105 93-98 General appearance: no acute distress - Head Head exam: Present: normocephalic, atraumatic - Eye Eye exam: Present: EOMI - Respiratory Respiratory exam: Present: clear to auscultation bilaterally - Cardiovascular Cardiovascular exam: Present: regular rate and rhythm - GI/Abdominal GI/Abdominal exam: Present: normal bowel sounds, tenderness (Mild right upper quadrant tenderness to deep palpation), soft. Absent: distended, guarding, rebound - Extremities Exam Extremities exam: Absent: edema - Neurological Exam Neurological exam: Present: altered (Somnolent) - Psychiatric Psychiatric exam: Present: flat affect - Skin Skin exam: Present: warm Results - Labs CBC & BMP: 04/11/17 10:02 04/12/17 05:25
[2017-04-12] MEDS: FOLIC ACID IV SCH (16:08)
[2017-04-12] MEDS: THIAMINE IV SCH (16:08)
[2017-04-12] MEDS: SODIUM CHLORIDE 0.9% IV SCH (16:08)
[2017-04-12] MEDS: LEVOFLOXACIN INJ 500 MG in PREMIX 1 EACH IV SCH (17:18)
[2017-04-13] MEDS: metroNIDAZOLE INJ 500 MG in PREMIX 1 EACH IV SCH ×2 (00:47→08:27)
[2017-04-13] MEDS: HYDROmorphone 2 MG/1 ML VIAL IV PRN ×2 (02:20→10:31)
[2017-04-13 04:32] LABS: Basophils # 0.1 10*3/uL (0.0-0.2); Basophils % 2.3 % (0.0-0.8); Eosinophils # 0.2 10*3/uL (0.0-0.87); Eosinophils % 3.6 % (0.00-10.9); Hematocrit 26.2 VOL% (42.0-52.0); Hemoglobin 7.9 GM/DL (14.0-18.0); Immature Granulocytes % 0.6 %; Immature Granulocytes Absolute 0.03 #; Lymphocytes % 21.1 % (21.2-54.2); Mean Corpuscular HGB Conc 30.2 GM/DL (32-36); Mean Corpuscular Hemoglobin 25 PG (27-34); Mean Corpuscular Volume 81.9 FL (87-102); Monocytes % 20.6 % (1.7-12.7); Neutrophils # 2.4 10*3/uL (1.4-7.4); Neutrophils % 51.8 % (38.7-73.9); Platelet Count 182 T/CUMM (130-400); Red Cell Distribution Width 19.4 % (9.3-17.3); White Blood Count 4.7 T/CUMM (4-12)
[2017-04-13 04:57] LABS: Band Neutrophils 1 % (0-10); Eosinophils 6 % (0-10); Hypochromasia 2+; Lymphocytes 20 % (20-55); Metamyelocytes 2 %; Platelet Estimate Normal; Segmented Neutrophils 48 % (50-85); Total Cells Counted 100
[2017-04-13 05:16] LABS: Calcium 8.1 MG/DL (8.5-10.1); Osmolality,Calculated 270.7 MOS/KG (273-304); Potassium 3.4 MMOL/L (3.5-5.1)
[2017-04-13] MEDS: SODIUM CHLORIDE 0.9% 1,000 ML IV SCH (08:26)
[2017-04-13] MEDS: levETIRAcetam 500 MG TABLET PO SCH (08:28)
[2017-04-13] MEDS: PANTOPRAZOLE 40 MG TABLET PO SCH (08:28)
[2017-04-13] MEDS: DIAZEPAM 5 MG TABLET PO SCH (08:29)
[2017-04-13 08:39] VITALS: BP 126/82
--- NOTE | 2017-04-13 09:39 | Discharge Summary ---
Hospital Course - Hospital Course Hospital Course: This is a new patient, a 36-year-old , with possible history of prior pancreatitis, regular beer drinking, presenting to outside hospital with acute pancreatitis. States that starting 3-4 days ago was having decrease in appetite, vague discomfort in the midepigastrium, starting 2 days ago had severe midepigastric pain, sharp, associated with nonbloody nausea and vomiting , with extension to more diffuse abdominal pain today. Denies prior symptoms greater than a week ago of early satiety, weight loss, melena, hematochezia. Currently denying diarrhea, constipation, hematochezia, melena. States that food does actually sound good to him this evening. Outside records from [facility] reviewed, patient admitted initially with vomiting which subsided after 8 mg of Zofran IV Has history of prior seizure, reporting they do not know the cause. States he had not been drinking beer for 2 weeks prior to seizure onset. Normally drinking approximately 3 beers per day, but states weeks to months ago he was drinking closer to 6-12 beers at a time, and "sharing a case with my friends on a daily basis." States he was drinking more heavily for about a year or 2, and was not drinking heavily prior to that. No hard liquor. No tobacco. No postprandial pain leading up to symptoms a few days ago. No history of gallstones. Does not know of any family members who have had pancreatitis, but states that some of his family is spread across the country. Patient was admitted to the intensive care unit. He required sedation, intubation and assisted ventilation. Laboratory testing was compatible with acute pancreatitis. He was seen in consultation by gastroenterology and pulmonary. He had no time demonstrated evidence of delirium tremens. He improved significantly thereafter. At the time of his discharge was comfortable with no abdominal pain and eating without any difficulties. Diagnosis - Discharge Diagnosis (1) Hypokalemia Status: Acute (2) Pancreatitis Status: Acute (3) Alcohol withdrawal with delirium in inpatient treatment Status: Acute (4) Acute respiratory failure Status: Acute Discharge Plan - Discharge Data Disposition: Disch To Home/Self Care Condition at Discharge: Stable Discharge Diet: advance to your usual diet Activity: resume usual activities as tolerated - Discharge Medications Continue levETIRAcetam TAB [Keppra Tab] 750 tablet PO BID Topiramate 50 mg PO DAILY Propylene Glycol/Peg 400 [Systane Gel Drops] 1 drop BOTH EYES QID PRN PRN Reason: Dry Eyes - Follow Up or Referral - Forms/Instructions Exam - Constitutional Vitals: Period Temp Pulse Resp BP Sys/Long Pulse Ox Last 24 Hr 97.0 F-99.0 F 62-91 14-22 103-126/60-83 97-99 Discharge Results Procedures and tests throughout hospitalization: Pending Orders 04/14/17 04:00 Ammonia IN AM Labs on day of discharge: Labs from last 24 hours 04/13/17 04/13/17 04/13/17 03:34 03:34 03:34 WBC 4.7 RBC 3.20 L Hgb 7.9 L Hct 26.2 L MCV 81.9 L MCH 25 L MCHC 30.2 L RDW 19.4 H Plt Count 182 D MPV 10.0 Neut % (Auto) 51.8 Lymph % (Auto) 21.1 L [place] % (Auto) 20.6 H Eos % (Auto) 3.6 Baso % (Auto) 2.3 H Neut # (Auto) 2.4 Lymph # (Auto) 1.0 L [place] # (Auto) 1.0 H Eos # (Auto) 0.2 Baso # (Auto) 0.1 Total Counted 100 Immature Gran % 0.6 Nucleated RBC % 0.0 Immature Gran # 0.03 Segmented Neutrophils 48 L Band Neutrophils 1 Lymphocytes 20 Monocytes 22 H Eosinophils 6 Basophils 1.0 H Metamyelocytes 2 Nucleated RBCs # 0.00 Platelet Estimate Normal Immature Plt Fraction 0.0 Hypochromasia 2+ Sodium 138 Potassium 3.4 L Chloride 105 Carbon Dioxide 26 Anion Gap 10.4 BUN 3 L Creatinine 0.50 L GFR Calculation 152 BUN/Creatinine Ratio 6.00 Glucose 89 Calculated Osmolality 270.7 L Calcium 8.1 L Ammonia 81 H DS: Provider Date of admission: 04/05/17 14:23 Primary care physician: Cayla Hernandez MD Attending physician on admission: Aidna Angelo MD Consults: 04/05/17 16:16 Consult to Physician [CONS] Routine Comment: Consulting Provider: Myesha Doyle Person Notified: Dr Williamson Date Notified: 04/05/17 Time Notified: 17:17 Consult Notification Comment: notified of consult 04/06/17 16:37 Consult to Physician [CONS] Routine Comment: Consulting Provider: Rich Myrick Consulting Provider Notified: Yes Person Notified: Dr. Myrick Date Notified: 04/06/17 Time Notified: 16:20 Consult Notification Comment: Complex mass unable to differentiate pancreas vs duodenum vs other 04/06/17 18:14 Consult to Physician [CONS] Routine Comment: Consulting Provider: Jong Melchor Consult to Specialist Group: Pulmonology Person Notified: Dr. Melchor Date Notified: 04/06/17 Time Notified: 18:30 04/06/17 18:42 Consult to Anesthesiology [CONS] Routine Consulting Provider: Reason for Anesthesiology: Intubation 04/07/17 09:21 Consult to Dietitian [CONS] Routine Reason for Dietitian: TPN/PPN-Initiate/Manage 04/07/17 12:10 Consult to Dietitian [CONS] Routine Reason for Dietitian: TF-Initiate/Manage Discharging clinician: Varun Monroe
[2017-04-13] MEDS: FOLIC ACID IV SCH (09:44)
[2017-04-13] MEDS: SODIUM CHLORIDE 0.9% IV SCH (09:44)
[2017-04-13] MEDS: THIAMINE IV SCH (09:44)
== END 2017-04-13 11:16 | disposition home or self-care (01) | DRG 438 ==
LOC: EDUNIT# → EDBD → N.ED 12:39 → N.EDINP 14:23 → SUATTDRO 14:23 → N.ICU 16:14 → N.2E 04-11 16:30
PROVIDERS: ADMIT Hospitalist

== ENCOUNTER 2017-12-16 15:18 | Inpatient (IN) ==
[2017-12-16] MEDS ORDERED: ONDANSETRON 4 MG/2 ML VIAL IV PRN (18:45)
[2017-12-16] MEDS ORDERED: PROMETHAZINE 25 MG/1 ML VIAL IM PRN (18:45)
[2017-12-16 19:50] LABS: Eosinophils # 0.1 10*3/uL (0.0-0.87); Eosinophils % 1.1 % (0.00-10.9); Hematocrit 32.8 VOL% (42.0-52.0); Hemoglobin 10.5 GM/DL (14.0-18.0); Immature Granulocytes Absolute 0.08 #; Lymphocytes # 1.1 10*3/uL (1.4-4.0); Lymphocytes % 12.9 % (21.2-54.2); Mean Corpuscular Hemoglobin 28 PG (27-34); Mean Platelet Volume 9.5 FL (9.6-12.0); Monocytes # 1.4 10*3/uL (0.11-0.8); Monocytes % 16.8 % (1.7-12.7); Neutrophils # 5.6 10*3/uL (1.4-7.4); Neutrophils % 68.2 % (38.7-73.9); Platelet Count 113 T/CUMM (130-400); Red Blood Count 3.77 MC/CUMM (3.8-5.5); Red Cell Distribution Width 23.7 % (9.3-17.3); White Blood Count 8.2 T/CUMM (4-12)
[2017-12-16 19:56] LABS: INR 1.6; PT Patient Result 16.4 SECS
[2017-12-16 20:15] LABS: Calcium 7.6 MG/DL (8.5-10.1); Osmolality,Calculated 277.4 MOS/KG (273-304); Potassium 3.2 MMOL/L (3.5-5.1)
[2017-12-16 20:18] LABS: Albumin 1.6 G/DL (3.4-5.0); Calcium 7.6 MG/DL (8.5-10.1); Osmolality,Calculated 279.3 MOS/KG (273-304); Potassium 3.3 MMOL/L (3.5-5.1); Total Protein 6.9 G/DL (6.4-8.3)
[2017-12-16 20:25] LABS: Bilirubin,Total 14.7 MG/DL (0.2-1.0)
[2017-12-16 20:40] LABS: Band Neutrophils 3 % (0-10); Eosinophils 2 % (0-10); Hypochromasia 3+; Lymphocytes 11 % (20-55); Metamyelocytes 3 %; Platelet Estimate Decreased; Segmented Neutrophils 68 % (50-85); Total Cells Counted 100
[2017-12-16] MEDS ORDERED: POTASSIUM CHLORIDE 20 MEQ TABLET PO ONE (21:14)
[2017-12-16] MEDS: MORPHINE 4 MG/1 ML VIAL IV PRN (21:47)
[2017-12-16 21:51] LABS: INR 1.6
[2017-12-16] MEDS: ALBUMIN 5% 25 GM in PREMIX 1 EACH IV SCH (23:11)
[2017-12-17] MEDS: MORPHINE 4 MG/1 ML VIAL IV PRN ×5 (03:24→22:05)
[2017-12-17 08:03] LABS: Albumin 1.8 G/DL (3.4-5.0); Calcium 7.4 MG/DL (8.5-10.1); Osmolality,Calculated 276.4 MOS/KG (273-304); Potassium 3.3 MMOL/L (3.5-5.1); Total Protein 5.7 G/DL (6.4-8.3)
[2017-12-17 08:07] LABS: Bilirubin,Total 12.5 MG/DL (0.2-1.0)
[2017-12-17] MEDS: MULTIVITAMIN (CENTRUM) TABLET PO SCH (09:27)
[2017-12-17] MEDS: FOLIC ACID 1 MG TABLET PO SCH (09:27)
[2017-12-17] MEDS: FUROSEMIDE 40 MG/4 ML VIAL IV SCH ×2 (09:27→15:20)
[2017-12-17] MEDS: THIAMINE 100 MG TABLET PO SCH (09:27)
[2017-12-17] MEDS: PANTOPRAZOLE 40 MG VIAL IV SCH (09:27)
[2017-12-17] MEDS: SPIRONOLACTONE 25 MG TABLET PO SCH (09:28)
[2017-12-17] MEDS: ALBUMIN 5% 25 GM in PREMIX 1 EACH IV SCH ×2 (09:28→21:37)
[2017-12-17 12:29] LABS: Amylase,Peritoneal Fluid 26 U/L; Glucose,Peritoneal Fluid 87 MG/DL; LDH,Peritoneal Fluid 45 U/L; Total Protein,Peritoneal Fluid < 1.0 G/DL
[2017-12-17 13:15] LABS: Apearance,Urine CLEAR (Clear); Bilirubin,Urine Moderate mg/dL (Negative); Blood, Urine Negative (Negative); Glucose,Urine (UA) Negative (Negative); Ketones,Urine Negative (Negative); Mucus,Urine Occasional /LPF (Occasional); Nitrite,Urine Negative (Negative); Protein,Urine 30 MG/DL; RBC,Urine 1 /HPF (0-4); Urine Color Amber (Yellow); Urine Specific Gravity 1.014 (1.001-1.035); WBC,Urine 1 /HPF (0-6)
[2017-12-17 13:27] LABS: Neutrophils,Peritoneal Fluid 3 %; RBC,Peritoneal Fluid 107 T/CUMM
[2017-12-17] MEDS: CIPROFLOXACIN INJ 400 MG in PREMIX 1 EACH IV SCH (18:04)
[2017-12-17] MEDS: levETIRAcetam 250 MG TABLET PO SCH (21:35)
[2017-12-17] MEDS: prednisoLONE 5 MG TABLET PO SCH (21:36)
[2017-12-18] MEDS: POTASSIUM CHLORIDE RIDER 10 MEQ in PREMIX 1 EACH IV PRN ×6 (02:14→06:30)
[2017-12-18] MEDS: MORPHINE 4 MG/1 ML VIAL IV PRN ×3 (02:15→20:16)
[2017-12-18 05:48] LABS: Hematocrit 24.9 VOL% (42.0-52.0); Hemoglobin 8.1 GM/DL (14.0-18.0); Immature Granulocytes % 1.8 %; Immature Granulocytes Absolute 0.14 #; Lymphocytes # 0.3 10*3/uL (1.4-4.0); Mean Corpuscular HGB Conc 32.5 GM/DL (32-36); Mean Corpuscular Hemoglobin 28 PG (27-34); Mean Platelet Volume 10.1 FL (9.6-12.0); Monocytes # 0.6 10*3/uL (0.11-0.8); Monocytes % 7.3 % (1.7-12.7); NRBC # 0.03 10*3/uL; Neutrophils # 6.9 10*3/uL (1.4-7.4); Neutrophils % 86.9 % (38.7-73.9); Platelet Count 89 T/CUMM (130-400); Red Blood Count 2.93 MC/CUMM (3.8-5.5); Red Cell Distribution Width 23.1 % (9.3-17.3)
[2017-12-18 06:11] LABS: Albumin 2.1 G/DL (3.4-5.0); Calcium 7.8 MG/DL (8.5-10.1); Osmolality,Calculated 268.1 MOS/KG (273-304); Potassium 3.8 MMOL/L (3.5-5.1); Total Protein 5.5 G/DL (6.4-8.3)
[2017-12-18 06:15] LABS: Bilirubin,Total 17.2 MG/DL (0.2-1.0)
[2017-12-18 06:18] LABS: Hypochromasia 1+; Lymphocytes 5 % (20-55); Microcytosis Slight; Ovalocytes Slight; Platelet Estimate Decreased; Segmented Neutrophils 90 % (50-85); Target Cells Few; Total Cells Counted 100
[2017-12-18] MEDS ORDERED: MAGNESIUM SULF RIDER 2 GM in PREMIX 1 EACH IV PRN (09:23)
[2017-12-18] MEDS ORDERED: MAGNESIUM SULF RIDER 4 GM in PREMIX 1 EACH IV PRN (09:23)
[2017-12-18] MEDS: MULTIVITAMIN (CENTRUM) TABLET PO SCH (09:28)
[2017-12-18] MEDS: SPIRONOLACTONE 25 MG TABLET PO SCH (09:28)
[2017-12-18] MEDS: levETIRAcetam 250 MG TABLET PO SCH ×2 (09:28→21:37)
[2017-12-18] MEDS: THIAMINE 100 MG TABLET PO SCH (09:29)
[2017-12-18] MEDS: FUROSEMIDE 40 MG/4 ML VIAL IV SCH ×2 (09:29→15:39)
[2017-12-18] MEDS: FOLIC ACID 1 MG TABLET PO SCH (09:29)
[2017-12-18] MEDS: CIPROFLOXACIN INJ 400 MG in PREMIX 1 EACH IV SCH ×2 (09:29→21:32)
[2017-12-18] MEDS: PANTOPRAZOLE 40 MG VIAL IV SCH (09:29)
[2017-12-18] MEDS: prednisoLONE 5 MG TABLET PO SCH ×2 (09:30→21:37)
[2017-12-18] MEDS: ALBUMIN 5% 25 GM in PREMIX 1 EACH IV SCH ×2 (11:40→22:55)
[2017-12-18] MEDS ORDERED: hydrOXYzine HCL 25 MG TABLET PO PRN (17:22)
[2017-12-19] MEDS: MORPHINE 4 MG/1 ML VIAL IV PRN ×4 (00:17→21:44)
[2017-12-19 02:28] LABS: Basophils % 0.1 % (0.0-0.8); Eosinophils % 0.1 % (0.00-10.9); Hematocrit 23.9 VOL% (42.0-52.0); Hemoglobin 7.7 GM/DL (14.0-18.0); Immature Granulocytes % 1.4 %; Immature Granulocytes Absolute 0.12 #; Lymphocytes # 0.3 10*3/uL (1.4-4.0); Mean Corpuscular HGB Conc 32.2 GM/DL (32-36); Mean Corpuscular Hemoglobin 28 PG (27-34); Mean Corpuscular Volume 87.2 FL (87-102); Mean Platelet Volume 9.8 FL (9.6-12.0); Monocytes # 0.8 10*3/uL (0.11-0.8); Monocytes % 8.8 % (1.7-12.7); Neutrophils # 7.7 10*3/uL (1.4-7.4); Neutrophils % 86.6 % (38.7-73.9); Platelet Count 99 T/CUMM (130-400); Red Blood Count 2.74 MC/CUMM (3.8-5.5); Red Cell Distribution Width 23.7 % (9.3-17.3); White Blood Count 8.9 T/CUMM (4-12)
[2017-12-19 02:55] LABS: Albumin 2.5 G/DL (3.4-5.0); Calcium 7.7 MG/DL (8.5-10.1); Potassium 3.3 MMOL/L (3.5-5.1); Total Protein 5.9 G/DL (6.4-8.3)
[2017-12-19 03:21] LABS: Band Neutrophils 17 % (0-10); Eosinophils 1 % (0-10); Lymphocytes 4 % (20-55); Segmented Neutrophils 73 % (50-85); Total Cells Counted 100
[2017-12-19 03:22] LABS: Anisocytosis 2+; Bilirubin,Total 21.3 MG/DL (0.2-1.0); Poikilocytosis 1+; Target Cells 3+
[2017-12-19] MEDS ORDERED: SODIUM CHLORIDE 0.9% 1,000 ML IV PRN (09:00)
[2017-12-19 10:12] LABS: Bilirubin,Direct 13.74 MG/DL (0.0-0.20)
[2017-12-19 10:32] LABS: Bilirubin,Total 18.6 MG/DL (0.2-1.0)
[2017-12-19] MEDS: FUROSEMIDE 40 MG/4 ML VIAL IV SCH ×2 (11:44→16:35)
[2017-12-19] MEDS: ALBUMIN 5% 25 GM in PREMIX 1 EACH IV SCH ×2 (11:57→21:54)
[2017-12-19] MEDS: SPIRONOLACTONE 25 MG TABLET PO SCH (11:58)
[2017-12-19] MEDS: MULTIVITAMIN (CENTRUM) TABLET PO SCH (11:59)
[2017-12-19] MEDS: FOLIC ACID 1 MG TABLET PO SCH (11:59)
[2017-12-19] MEDS: levETIRAcetam 250 MG TABLET PO SCH ×2 (11:59→21:44)
[2017-12-19] MEDS: prednisoLONE 5 MG TABLET PO SCH (11:59)
[2017-12-19] MEDS: THIAMINE 100 MG TABLET PO SCH (11:59)
[2017-12-19] MEDS: PANTOPRAZOLE 40 MG VIAL IV SCH (11:59)
[2017-12-19] MEDS: CIPROFLOXACIN INJ 400 MG in PREMIX 1 EACH IV SCH ×2 (12:29→23:08)
[2017-12-20] MEDS: MORPHINE 4 MG/1 ML VIAL IV PRN ×4 (03:21→19:14)
[2017-12-20 04:53] LABS: Basophils % 0.4 % (0.0-0.8); Eosinophils # 0.3 10*3/uL (0.0-0.87); Eosinophils % 2.7 % (0.00-10.9); Hematocrit 25.5 VOL% (42.0-52.0); Hemoglobin 8.4 GM/DL (14.0-18.0); Immature Granulocytes % 2.3 %; Immature Granulocytes Absolute 0.24 #; Lymphocytes # 0.9 10*3/uL (1.4-4.0); Mean Corpuscular HGB Conc 32.9 GM/DL (32-36); Mean Corpuscular Hemoglobin 29 PG (27-34); Mean Corpuscular Volume 87.6 FL (87-102); Mean Platelet Volume 9.4 FL (9.6-12.0); Monocytes # 1.4 10*3/uL (0.11-0.8); Monocytes % 13.8 % (1.7-12.7); Neutrophils # 7.5 10*3/uL (1.4-7.4); Neutrophils % 71.8 % (38.7-73.9); Platelet Count 105 T/CUMM (130-400); Red Blood Count 2.91 MC/CUMM (3.8-5.5); Red Cell Distribution Width 22.5 % (9.3-17.3); White Blood Count 10.4 T/CUMM (4-12)
[2017-12-20 05:17] LABS: Band Neutrophils 1 % (0-10); Eosinophils 1 % (0-10); Hypochromasia 1+; Lymphocytes 9 % (20-55); Ovalocytes Slight; Platelet Estimate Decreased; Segmented Neutrophils 78 % (50-85); Total Cells Counted 100
[2017-12-20 05:52] LABS: Albumin 2.5 G/DL (3.4-5.0); Calcium 7.6 MG/DL (8.5-10.1); Total Protein 5.6 G/DL (6.4-8.3)
[2017-12-20 05:53] LABS: Potassium 2.9 MMOL/L (3.5-5.1)
[2017-12-20 06:00] LABS: Bilirubin,Total 18.5 MG/DL (0.2-1.0)
[2017-12-20] MEDS: FUROSEMIDE 40 MG/4 ML VIAL IV SCH ×2 (08:41→15:03)
[2017-12-20] MEDS: CIPROFLOXACIN INJ 400 MG in PREMIX 1 EACH IV SCH (08:46)
[2017-12-20] MEDS: SPIRONOLACTONE 25 MG TABLET PO SCH (08:47)
[2017-12-20] MEDS: MULTIVITAMIN (CENTRUM) TABLET PO SCH (08:47)
[2017-12-20] MEDS: levETIRAcetam 250 MG TABLET PO SCH (08:48)
[2017-12-20] MEDS: FOLIC ACID 1 MG TABLET PO SCH (08:48)
[2017-12-20] MEDS: THIAMINE 100 MG TABLET PO SCH (08:49)
[2017-12-20] MEDS ORDERED: prednisoLONE 5 MG TABLET PO SCH (09:00)
[2017-12-20] MEDS: PANTOPRAZOLE 40 MG VIAL IV SCH (09:57)
[2017-12-20] MEDS: ALBUMIN 5% 25 GM in PREMIX 1 EACH IV SCH (09:58)
[2017-12-20] MEDS ORDERED: POTASSIUM CHLORIDE 20 MEQ TABLET PO ONE ×3 (11:04→20:39)
[2017-12-20] MEDS: POTASSIUM CHLORIDE RIDER 10 MEQ in PREMIX 1 EACH IV PRN ×5 (14:18→19:32)
[2017-12-20 21:17] VITALS: BP 129/91
== END 2017-12-20 21:28 | disposition home or self-care (01) | DRG 433 ==
LOC: INTOOBSV 17:46 → N.3E 17:46 → SUATTDRO 17:46
PROVIDERS: ADMIT Internal Medicine; ATTEND Internal Medicine

== ENCOUNTER 2017-12-29 18:53 | Inpatient (IN) ==
[2017-12-29] MEDS ORDERED: fentaNYL 100 MCG/2 ML VIAL IV STA (19:23)
[2017-12-29] MEDS ORDERED: CEFOTAXIME 2,000 MG in SODIUM CHLORIDE 0.9% 100 ML IV SCH (19:30)
[2017-12-29 19:50] LABS: Basophils # 0.1 10*3/uL (0.0-0.2); Basophils % 0.3 % (0.0-0.8); Eosinophils % 0.1 % (0.00-10.9); Hematocrit 25.9 VOL% (42.0-52.0); Hemoglobin 8.6 GM/DL (14.0-18.0); Immature Granulocytes % 1.1 %; Immature Granulocytes Absolute 0.21 #; Lymphocytes # 0.9 10*3/uL (1.4-4.0); Lymphocytes % 4.9 % (21.2-54.2); Mean Corpuscular HGB Conc 33.2 GM/DL (32-36); Mean Corpuscular Hemoglobin 31 PG (27-34); Mean Corpuscular Volume 93.2 FL (87-102); Monocytes # 1.5 10*3/uL (0.11-0.8); Neutrophils # 16.2 10*3/uL (1.4-7.4); Neutrophils % 85.6 % (38.7-73.9); Platelet Count 106 T/CUMM (130-400); Red Blood Count 2.78 MC/CUMM (3.8-5.5); Red Cell Distribution Width 27.2 % (9.3-17.3); White Blood Count 18.9 T/CUMM (4-12)
[2017-12-29 20:08] LABS: Albumin 1.9 G/DL (3.4-5.0); Bilirubin,Direct 13.97 MG/DL (0.0-0.20); Calcium 7.7 MG/DL (8.5-10.1); Osmolality,Calculated 263.4 MOS/KG (273-304); Potassium 3.2 MMOL/L (3.5-5.1); Total Protein 5.8 G/DL (6.4-8.3)
[2017-12-29 20:13] LABS: Bilirubin,Indirect 5.5 MG/DL (0.0-1.0); Bilirubin,Total 19.5 MG/DL (0.2-1.0)
[2017-12-29 20:22] LABS: Band Neutrophils 1 % (0-10); Hypochromasia 2+; Lymphocytes 3 % (20-55); Nucleated Red Blood Cells 1 (0-5); Segmented Neutrophils 91 % (50-85); Target Cells 1+; Total Cells Counted 100
[2017-12-29 20:23] LABS: Microcytosis 1+; Platelet Estimate Decreased
[2017-12-29] MEDS ORDERED: LORazepam 2 MG/1 ML VIAL IV PRN (22:14)
[2017-12-29] MEDS: PROPRANOLOL 20 MG TABLET PO SCH (23:58)
[2017-12-29] MEDS: levETIRAcetam 250 MG TABLET PO SCH (23:58)
[2017-12-30] MEDS ORDERED: CEFOTAXIME IV SCH
[2017-12-30] MEDS: cefTRIAXone 2,000 MG in SYRINGE 1 EACH IV SCH ×2 (00:31→09:00)
[2017-12-30 07:58] LABS: Basophils # 0.1 10*3/uL (0.0-0.2); Basophils % 0.6 % (0.0-0.8); Eosinophils # 0.1 10*3/uL (0.0-0.87); Eosinophils % 0.3 % (0.00-10.9); Hematocrit 28.9 VOL% (42.0-52.0); Hemoglobin 9.5 GM/DL (14.0-18.0); Immature Granulocytes % 0.8 %; Immature Granulocytes Absolute 0.16 #; Lymphocytes # 0.9 10*3/uL (1.4-4.0); Lymphocytes % 4.6 % (21.2-54.2); Mean Corpuscular HGB Conc 32.9 GM/DL (32-36); Mean Corpuscular Hemoglobin 31 PG (27-34); Mean Corpuscular Volume 95.4 FL (87-102); Monocytes # 1.4 10*3/uL (0.11-0.8); Monocytes % 7.2 % (1.7-12.7); Neutrophils # 16.7 10*3/uL (1.4-7.4); Neutrophils % 86.5 % (38.7-73.9); Platelet Count 112 T/CUMM (130-400); Red Blood Count 3.03 MC/CUMM (3.8-5.5); Red Cell Distribution Width 27.4 % (9.3-17.3); White Blood Count 19.3 T/CUMM (4-12)
[2017-12-30 08:18] LABS: Hypochromasia 2+
[2017-12-30 08:19] LABS: Bilirubin,Indirect 5.2 MG/DL (0.0-1.0); Bilirubin,Total 19.2 MG/DL (0.2-1.0); Macrocytosis 1+; Platelet Estimate Decreased; Target Cells Slight
[2017-12-30 08:22] LABS: Albumin 1.8 G/DL (3.4-5.0); Calcium 8.1 MG/DL (8.5-10.1); Osmolality,Calculated 264.2 MOS/KG (273-304); Potassium 3.2 MMOL/L (3.5-5.1); Total Protein 5.5 G/DL (6.4-8.3)
[2017-12-30] MEDS: THIAMINE 100 MG TABLET PO SCH (09:00)
[2017-12-30] MEDS: PROPRANOLOL 20 MG TABLET PO SCH ×2 (09:00→21:53)
[2017-12-30] MEDS: SPIRONOLACTONE 25 MG TABLET PO SCH (09:00)
[2017-12-30] MEDS: MULTIVITAMIN (CENTRUM) TABLET PO SCH (09:00)
[2017-12-30] MEDS: prednisoLONE 5 MG TABLET PO SCH (09:00)
[2017-12-30] MEDS: FUROSEMIDE 40 MG TABLET PO SCH (09:00)
[2017-12-30] MEDS: levETIRAcetam 250 MG TABLET PO SCH ×2 (09:00→21:53)
[2017-12-30] MEDS: metroNIDAZOLE 500 MG TABLET PO SCH ×2 (16:15→21:53)
[2017-12-30] MEDS: POTASSIUM CHLORIDE 20 MEQ TABLET PO SCH ×3 (16:15→22:45)
[2017-12-30] MEDS: MORPHINE 4 MG/1 ML VIAL IV PRN ×2 (17:37→21:55)
[2017-12-31] MEDS: MORPHINE 4 MG/1 ML VIAL IV PRN ×5 (03:03→22:14)
[2017-12-31 05:58] LABS: Basophils # 0.1 10*3/uL (0.0-0.2); Basophils % 0.5 % (0.0-0.8); Eosinophils % 0.1 % (0.00-10.9); Hematocrit 27.9 VOL% (42.0-52.0); Hemoglobin 9.5 GM/DL (14.0-18.0); Immature Granulocytes % 1.4 %; Immature Granulocytes Absolute 0.22 #; Lymphocytes # 1.4 10*3/uL (1.4-4.0); Lymphocytes % 8.8 % (21.2-54.2); Mean Corpuscular HGB Conc 34.1 GM/DL (32-36); Mean Corpuscular Hemoglobin 32 PG (27-34); Mean Platelet Volume 10.1 FL (9.6-12.0); Monocytes # 1.4 10*3/uL (0.11-0.8); Monocytes % 8.8 % (1.7-12.7); Neutrophils # 12.4 10*3/uL (1.4-7.4); Neutrophils % 80.4 % (38.7-73.9); Platelet Count 121 T/CUMM (130-400); Red Cell Distribution Width 26.7 % (9.3-17.3); White Blood Count 15.4 T/CUMM (4-12)
[2017-12-31 06:21] LABS: Albumin 1.7 G/DL (3.4-5.0); Bilirubin,Direct 13.3 MG/DL (0.0-0.20); Calcium 7.9 MG/DL (8.5-10.1); Osmolality,Calculated 267.2 MOS/KG (273-304); Potassium 3.5 MMOL/L (3.5-5.1); Total Protein 5.5 G/DL (6.4-8.3)
[2017-12-31 06:25] LABS: Hypochromasia 1+; Platelet Estimate Normal
[2017-12-31 06:26] LABS: Microcytosis Slight; Ovalocytes Slight
[2017-12-31 06:41] LABS: Bilirubin,Indirect 4.3 MG/DL (0.0-1.0); Bilirubin,Total 17.6 MG/DL (0.2-1.0)
[2017-12-31] MEDS: prednisoLONE 5 MG TABLET PO SCH (08:09)
[2017-12-31] MEDS: THIAMINE 100 MG TABLET PO SCH (08:10)
[2017-12-31] MEDS: SPIRONOLACTONE 25 MG TABLET PO SCH (08:10)
[2017-12-31] MEDS: levETIRAcetam 250 MG TABLET PO SCH ×2 (08:10→20:42)
[2017-12-31] MEDS: MULTIVITAMIN (CENTRUM) TABLET PO SCH (08:11)
[2017-12-31] MEDS: FUROSEMIDE 40 MG TABLET PO SCH (08:11)
[2017-12-31] MEDS: PROPRANOLOL 20 MG TABLET PO SCH ×2 (08:11→20:42)
[2017-12-31] MEDS: metroNIDAZOLE 500 MG TABLET PO SCH ×3 (08:11→20:42)
[2017-12-31] MEDS: cefTRIAXone 2,000 MG in SYRINGE 1 EACH IV SCH (11:16)
[2017-12-31] MEDS: LACTULOSE 20 GM/30 ML UDCUP PO SCH (20:41)
[2018-01-01] MEDS: MORPHINE 4 MG/1 ML VIAL IV PRN ×5 (03:41→22:47)
[2018-01-01 06:53] LABS: Basophils # 0.1 10*3/uL (0.0-0.2); Basophils % 0.5 % (0.0-0.8); Eosinophils % 0.1 % (0.00-10.9); Hematocrit 30.4 VOL% (42.0-52.0); Hemoglobin 10.2 GM/DL (14.0-18.0); Immature Granulocytes % 1.5 %; Immature Granulocytes Absolute 0.22 #; Lymphocytes # 1.1 10*3/uL (1.4-4.0); Lymphocytes % 7.9 % (21.2-54.2); Mean Corpuscular HGB Conc 33.6 GM/DL (32-36); Mean Corpuscular Hemoglobin 32 PG (27-34); Mean Corpuscular Volume 94.1 FL (87-102); Monocytes # 1.3 10*3/uL (0.11-0.8); Monocytes % 8.9 % (1.7-12.7); Neutrophils # 11.5 10*3/uL (1.4-7.4); Neutrophils % 81.1 % (38.7-73.9); Platelet Count 127 T/CUMM (130-400); Red Blood Count 3.23 MC/CUMM (3.8-5.5); Red Cell Distribution Width 26.7 % (9.3-17.3); White Blood Count 14.2 T/CUMM (4-12)
[2018-01-01 07:27] LABS: Bilirubin,Direct 12.45 MG/DL (0.0-0.20)
[2018-01-01 07:30] LABS: Albumin 1.8 G/DL (3.4-5.0); Calcium 8.1 MG/DL (8.5-10.1); Osmolality,Calculated 270.8 MOS/KG (273-304); Potassium 3.2 MMOL/L (3.5-5.1); Total Protein 5.9 G/DL (6.4-8.3)
[2018-01-01 07:33] LABS: Bilirubin,Indirect 3.6 MG/DL (0.0-1.0)
[2018-01-01 07:41] LABS: Burr Cells Slight; Hypochromasia 2+; Target Cells Slight
[2018-01-01] MEDS: SPIRONOLACTONE 25 MG TABLET PO SCH (08:13)
[2018-01-01] MEDS: prednisoLONE 5 MG TABLET PO SCH (08:13)
[2018-01-01] MEDS: MULTIVITAMIN (CENTRUM) TABLET PO SCH (08:14)
[2018-01-01] MEDS: FUROSEMIDE 40 MG TABLET PO SCH (08:14)
[2018-01-01] MEDS: metroNIDAZOLE 500 MG TABLET PO SCH ×3 (08:14→21:15)
[2018-01-01] MEDS: PROPRANOLOL 20 MG TABLET PO SCH ×2 (08:14→21:19)
[2018-01-01] MEDS: THIAMINE 100 MG TABLET PO SCH (08:15)
[2018-01-01] MEDS: LACTULOSE 20 GM/30 ML UDCUP PO SCH ×2 (08:15→21:16)
[2018-01-01] MEDS: levETIRAcetam 250 MG TABLET PO SCH ×2 (08:15→21:15)
[2018-01-01] MEDS: cefTRIAXone 2,000 MG in SYRINGE 1 EACH IV SCH (08:15)
[2018-01-01] MEDS: POTASSIUM CHLORIDE 20 MEQ TABLET PO SCH ×4 (10:00→21:16)
[2018-01-02] MEDS: MORPHINE 4 MG/1 ML VIAL IV PRN ×2 (03:43→08:24)
[2018-01-02 06:50] LABS: Basophils # 0.1 10*3/uL (0.0-0.2); Basophils % 0.4 % (0.0-0.8); Hematocrit 29.5 VOL% (42.0-52.0); Hemoglobin 9.8 GM/DL (14.0-18.0); Immature Granulocytes % 1.3 %; Immature Granulocytes Absolute 0.21 #; Lymphocytes # 0.9 10*3/uL (1.4-4.0); Lymphocytes % 5.4 % (21.2-54.2); Mean Corpuscular HGB Conc 33.2 GM/DL (32-36); Mean Corpuscular Hemoglobin 32 PG (27-34); Mean Corpuscular Volume 95.2 FL (87-102); Mean Platelet Volume 9.7 FL (9.6-12.0); Monocytes # 1.4 10*3/uL (0.11-0.8); Monocytes % 8.7 % (1.7-12.7); Neutrophils # 13.9 10*3/uL (1.4-7.4); Neutrophils % 84.2 % (38.7-73.9); Platelet Count 123 T/CUMM (130-400); Red Cell Distribution Width 26.8 % (9.3-17.3); White Blood Count 16.5 T/CUMM (4-12)
[2018-01-02 06:51] LABS: INR 1.9; PT Patient Result 19.6 SECS
[2018-01-02 06:59] LABS: Bilirubin,Direct 12.32 MG/DL (0.0-0.20)
[2018-01-02 07:00] LABS: Albumin 1.9 G/DL (3.4-5.0); Calcium 7.7 MG/DL (8.5-10.1); Osmolality,Calculated 265.2 MOS/KG (273-304); Potassium 3.4 MMOL/L (3.5-5.1); Total Protein 5.9 G/DL (6.4-8.3)
[2018-01-02 07:04] LABS: Bilirubin,Indirect 3.7 MG/DL (0.0-1.0)
[2018-01-02 07:30] LABS: Polychromasia Slight; Target Cells Few
[2018-01-02 07:31] LABS: Macrocytosis 1+; Platelet Estimate Decreased
[2018-01-02] MEDS ORDERED: LINEZOLID INJ 600 MG in PREMIX 1 EACH IV SCH (08:30)
[2018-01-02] MEDS: THIAMINE 100 MG TABLET PO SCH (10:00)
[2018-01-02] MEDS: PROPRANOLOL 20 MG TABLET PO SCH ×2 (10:00→20:52)
[2018-01-02] MEDS: levETIRAcetam 250 MG TABLET PO SCH ×2 (10:00→20:47)
[2018-01-02] MEDS: MULTIVITAMIN (CENTRUM) TABLET PO SCH (10:01)
[2018-01-02] MEDS: SPIRONOLACTONE 25 MG TABLET PO SCH (10:01)
[2018-01-02] MEDS: metroNIDAZOLE 500 MG TABLET PO SCH ×3 (10:01→20:47)
[2018-01-02] MEDS: LACTULOSE 20 GM/30 ML UDCUP PO SCH ×2 (10:02→20:47)
[2018-01-02] MEDS: FUROSEMIDE 40 MG TABLET PO SCH (10:03)
[2018-01-02] MEDS: cefTRIAXone 2,000 MG in SYRINGE 1 EACH IV SCH (10:09)
[2018-01-02] MEDS: HYOSCYAMINE 0.125 MG TABLET PO PRN (16:11)
[2018-01-03 04:49] LABS: Basophils # 0.1 10*3/uL (0.0-0.2); Basophils % 0.5 % (0.0-0.8); Eosinophils # 0.1 10*3/uL (0.0-0.87); Eosinophils % 0.4 % (0.00-10.9); Hematocrit 25.9 VOL% (42.0-52.0); Hemoglobin 8.7 GM/DL (14.0-18.0); Immature Granulocytes % 1.8 %; Immature Granulocytes Absolute 0.26 #; Lymphocytes % 7.1 % (21.2-54.2); Mean Corpuscular HGB Conc 33.6 GM/DL (32-36); Mean Corpuscular Hemoglobin 32 PG (27-34); Mean Corpuscular Volume 94.2 FL (87-102); Mean Platelet Volume 9.3 FL (9.6-12.0); Monocytes # 1.2 10*3/uL (0.11-0.8); Monocytes % 8.3 % (1.7-12.7); Neutrophils # 11.9 10*3/uL (1.4-7.4); Neutrophils % 81.9 % (38.7-73.9); Red Blood Count 2.75 MC/CUMM (3.8-5.5); Red Cell Distribution Width 26.4 % (9.3-17.3); White Blood Count 14.6 T/CUMM (4-12)
[2018-01-03 05:05] LABS: Platelet Count 89 T/CUMM (130-400)
[2018-01-03 05:26] LABS: Bilirubin,Direct 10.87 MG/DL (0.0-0.20); Bilirubin,Indirect 3.3 MG/DL (0.0-1.0)
[2018-01-03 05:27] LABS: Albumin 1.5 G/DL (3.4-5.0); Calcium 7.4 MG/DL (8.5-10.1); Osmolality,Calculated 267.1 MOS/KG (273-304); Potassium 3.5 MMOL/L (3.5-5.1); Total Protein 5.1 G/DL (6.4-8.3)
[2018-01-03 05:39] LABS: Bilirubin,Total 14.2 MG/DL (0.2-1.0)
[2018-01-03] MEDS: HYOSCYAMINE 0.125 MG TABLET PO PRN ×3 (05:56→21:10)
[2018-01-03 06:45] LABS: Hypochromasia 1+; Polychromasia Slight; Target Cells Slight
[2018-01-03 06:46] LABS: Acanthocytes Few
[2018-01-03] MEDS: SPIRONOLACTONE 25 MG TABLET PO SCH (09:25)
[2018-01-03] MEDS: MULTIVITAMIN (CENTRUM) TABLET PO SCH (09:25)
[2018-01-03] MEDS: THIAMINE 100 MG TABLET PO SCH (09:26)
[2018-01-03] MEDS: levETIRAcetam 250 MG TABLET PO SCH ×2 (09:26→21:10)
[2018-01-03] MEDS: metroNIDAZOLE 500 MG TABLET PO SCH ×3 (09:26→21:10)
[2018-01-03] MEDS: PROPRANOLOL 20 MG TABLET PO SCH (09:29)
[2018-01-03] MEDS: cefTRIAXone 2,000 MG in SYRINGE 1 EACH IV SCH (09:32)
[2018-01-03 10:40] LABS: Apearance,Urine Slightly Hazy (Clear); Bilirubin,Urine Moderate mg/dL (Negative); Blood, Urine Negative (Negative); Glucose,Urine (UA) Negative (Negative); Ketones,Urine Negative (Negative); Mucus,Urine Occasional /LPF (Occasional); Nitrite,Urine Negative (Negative); Protein,Urine 100 MG/DL; Urine Color Amber (Yellow); Urine Specific Gravity 1.017 (1.001-1.035)
[2018-01-03] MEDS ORDERED: MORPHINE 4 MG/1 ML VIAL IV ONE (12:43)
[2018-01-03] MEDS: FUROSEMIDE 40 MG TABLET PO SCH (15:00)
[2018-01-03] MEDS: LACTULOSE 20 GM/30 ML UDCUP PO SCH ×2 (21:10→21:12)
[2018-01-04] MEDS: PROPRANOLOL 20 MG TABLET PO SCH ×2 (01:36→09:42)
[2018-01-04] MEDS: HYOSCYAMINE 0.125 MG TABLET PO PRN (04:45)
[2018-01-04 05:15] LABS: Basophils # 0.1 10*3/uL (0.0-0.2); Basophils % 0.7 % (0.0-0.8); Eosinophils % 0.1 % (0.00-10.9); Hematocrit 25.8 VOL% (42.0-52.0); Hemoglobin 8.6 GM/DL (14.0-18.0); Immature Granulocytes % 2.3 %; Immature Granulocytes Absolute 0.35 #; Lymphocytes % 6.8 % (21.2-54.2); Mean Corpuscular HGB Conc 33.3 GM/DL (32-36); Mean Corpuscular Hemoglobin 33 PG (27-34); Mean Corpuscular Volume 97.4 FL (87-102); Mean Platelet Volume 9.6 FL (9.6-12.0); Monocytes # 1.2 10*3/uL (0.11-0.8); Monocytes % 8.1 % (1.7-12.7); Neutrophils # 12.2 10*3/uL (1.4-7.4); Platelet Count 87 T/CUMM (130-400); Red Blood Count 2.65 MC/CUMM (3.8-5.5); Red Cell Distribution Width 25.8 % (9.3-17.3); White Blood Count 14.9 T/CUMM (4-12)
[2018-01-04 05:53] LABS: Albumin 1.5 G/DL (3.4-5.0); Calcium 7.4 MG/DL (8.5-10.1); Osmolality,Calculated 262.5 MOS/KG (273-304); Potassium 3.3 MMOL/L (3.5-5.1); Total Protein 5.3 G/DL (6.4-8.3)
[2018-01-04 05:58] LABS: Bilirubin,Direct 11.89 MG/DL (0.0-0.20)
[2018-01-04 06:19] LABS: Bilirubin,Indirect 3.2 MG/DL (0.0-1.0); Bilirubin,Total 15.1 MG/DL (0.2-1.0)
[2018-01-04 07:15] LABS: Hypochromasia 2+; Microcytosis 2+; Platelet Estimate Decreased
[2018-01-04] MEDS: SPIRONOLACTONE 25 MG TABLET PO SCH (09:42)
[2018-01-04] MEDS: levETIRAcetam 250 MG TABLET PO SCH ×2 (09:43→21:38)
[2018-01-04] MEDS: metroNIDAZOLE 500 MG TABLET PO SCH ×3 (09:44→21:38)
[2018-01-04] MEDS: THIAMINE 100 MG TABLET PO SCH (09:44)
[2018-01-04] MEDS: MULTIVITAMIN (CENTRUM) TABLET PO SCH (09:45)
[2018-01-04] MEDS: FUROSEMIDE 40 MG TABLET PO SCH (10:51)
[2018-01-04] MEDS: cefTRIAXone 2,000 MG in SYRINGE 1 EACH IV SCH (10:55)
[2018-01-04] MEDS: LACTULOSE 20 GM/30 ML UDCUP PO SCH ×2 (19:43→21:40)
[2018-01-05] MEDS: PROPRANOLOL 20 MG TABLET PO SCH ×2 (04:27→08:38)
[2018-01-05 06:53] LABS: Basophils # 0.1 10*3/uL (0.0-0.2); Basophils % 0.6 % (0.0-0.8); Eosinophils # 0.3 10*3/uL (0.0-0.87); Eosinophils % 2.3 % (0.00-10.9); Immature Granulocytes % 3.4 %; Immature Granulocytes Absolute 0.47 #; Lymphocytes % 7.3 % (21.2-54.2); Mean Corpuscular HGB Conc 33.3 GM/DL (32-36); Mean Corpuscular Hemoglobin 33 PG (27-34); Mean Corpuscular Volume 97.5 FL (87-102); Mean Platelet Volume 9.3 FL (9.6-12.0); Monocytes # 1.3 10*3/uL (0.11-0.8); Neutrophils # 10.8 10*3/uL (1.4-7.4); Neutrophils % 77.4 % (38.7-73.9); Platelet Count 81 T/CUMM (130-400); Red Blood Count 2.77 MC/CUMM (3.8-5.5); Red Cell Distribution Width 25.4 % (9.3-17.3)
[2018-01-05 07:21] LABS: Burr Cells Slight; Hypochromasia 1+; Microcytosis 1+; Ovalocytes Slight; Platelet Estimate Decreased
[2018-01-05 07:26] LABS: Albumin 1.5 G/DL (3.4-5.0); Bilirubin,Direct 11.81 MG/DL (0.0-0.20); Calcium 7.6 MG/DL (8.5-10.1); Osmolality,Calculated 263.4 MOS/KG (273-304); Potassium 3.6 MMOL/L (3.5-5.1); Total Protein 5.3 G/DL (6.4-8.3)
[2018-01-05 07:39] LABS: Bilirubin,Indirect 3.7 MG/DL (0.0-1.0); Bilirubin,Total 15.5 MG/DL (0.2-1.0)
[2018-01-05] MEDS: cefTRIAXone 2,000 MG in SYRINGE 1 EACH IV SCH (08:37)
[2018-01-05] MEDS: levETIRAcetam 250 MG TABLET PO SCH (08:38)
[2018-01-05] MEDS: SPIRONOLACTONE 25 MG TABLET PO SCH (08:38)
[2018-01-05] MEDS: metroNIDAZOLE 500 MG TABLET PO SCH (08:38)
[2018-01-05] MEDS: MULTIVITAMIN (CENTRUM) TABLET PO SCH (08:38)
[2018-01-05] MEDS: FUROSEMIDE 40 MG TABLET PO SCH (08:38)
[2018-01-05] MEDS: THIAMINE 100 MG TABLET PO SCH (08:39)
[2018-01-05] MEDS: LACTULOSE 20 GM/30 ML UDCUP PO SCH (08:40)
[2018-01-05 10:51] VITALS: BP 116/83
== END 2018-01-05 11:10 | disposition home or self-care (01) | DRG 372 ==
LOC: EDBD → EDUNIT# → N.ED 18:53 → N.EDINP 21:59 → SUATTDRO 21:59 → N.EDINP 22:39 → N.3E 23:07
PROVIDERS: ADMIT Internal Medicine Infectious Disease; ATTEND Internal Medicine